=== PATIENT | female | born 1940 | race Caucasian/White ===

== ENCOUNTER 2024-01-23 09:57 | Inpatient (IN) | payer MEDICARE, SELFPAY ==
[2024-01-23] VITALS (22 sets, daily range): BP systolic 75–110; BP diastolic 57–85; BMI 24.1
--- NOTE | 2024-01-23 07:39 | ED.GENMED ---
History of Present Illness
General
Chief Complaint: Breathing Problem
Source: patient, ambulance crew and [facility] records
Exam Limitations: none
Time Seen by Provider: 01/23/24 06:51
Nursing documentation reviewed up to this point in time: agreed with
Travel History
Have you had any contact with someone who has COVID-19?: No
Do you have any symptoms of coronavirus? Fever > 100 degrees, chills, cough, shortness of breath, sore throat, loss of taste or smell, muscle aches, or headache?: Yes
Symptoms:: SOB
History of Present Illness
History of Present Illness:
83-year-old female with a past medical history of hypertension, COPD, chronic respiratory failure on 4 L of oxygen recently per [facility] report, PE BENJY Bundy who presents to the emergency department from [facility] where
she has been staying after recent hospitalization at [facility] post fall with right knee injury. She presents today for evaluation of shortness of breath. Patient reports that she was feeling increased shortness of breath throughout the
night. She says that this morning when the nurse came in to check on her they noticed that she was breathing quite heavily and called EMS to bring her to the hospital. Patient says that she did have some mild discomfort 'like I had to belch' that
lasted for short period of time last night�she is quite vague about the duration of the symptoms but is quite sure that it is resolved at present. She has had mild cough but she says this is chronic related to her COPD and not necessarily changed.
She denies any recent fevers or chills. Denies any recent swelling in the legs. She denies any GI symptoms. She denies any other complaints.
Review of Systems
Review of Systems
All Other Systems: ROS reviewed and negative except as documented in HPI and ROS
Constitutional: Denies fever or chills
EENT: Denies sore throat or runny nose
Respiratory: Reports cough and trouble breathing
Cardiac: Reports chest pain; Denies diaphoresis or palpitations
ABD/GI: Denies abdominal pain, nausea, vomiting or diarrhea
: Denies dysuria, frequency or flank pain
Musculoskeletal: Denies neck pain or back pain
Neurological: Denies headache, weakness or numbness
Phy Exam
Physical Exam
Physical Exam:
General: Awake, alert, oriented x3; no acute distress
Head: Normocephalic, atraumatic
Eyes: Conjunctiva normal, EOMI
Throat: Airway intact, handling secretions
Neck: Trachea midline, supple without meningismus, no JVD
Lungs: Patient is saturating 100% on 2 L nasal cannula (reportedly wears 4 L at [place] point); she has bilateral wheezing throughout all lung faustin
Heart: Tachycardia with regular rhythm, no murmurs, gallops, or rubs
Abd: Soft, non distended, nontender
Neuro: Cranial nerves grossly intact, speech fluid
Skin: no rash
Extremities: Trace edema in the lower extremities bilaterally, equal pulses in all extremities
Scores
Heart Failure Risk
Heart Failure Risk Score: Not Applicable
Heart Score for Chest Pain Patients
STEMI patient?: Not applicable
Withdrawal Assessment of Alcohol
Withdrawal Assessment Completed?: Not applicable
Course
Orders/Labs/Results
Orders:
Orders
01/23/24 06:55
Electrocardiogram (*1) Urgent
Reason for Study: Shortness of Breath
EKG- Treatment ONCE
01/23/24 07:24
Echo 2D MMode Color/Doppler Urgent
Reason for Study: chest pain, abnormal EKG
01/23/24 07:26
CR Chest Portable - 1 View Urgent
Comment:
Reason For Exam: sob, cp
Reason Study Needs to be Portable: Unable to Transport
01/23/24 07:29
COVID-19 Antigen Urgent
Source: Nasal Swab
Comprehensive Metabolic Panel Urgent
NT-proBNP Urgent
Troponin I Urgent
Influenza A+B Rapid Molecular Urgent
MARS Source: Nasal Swab
Specimen Description:
01/23/24 07:46
Ipratropium/Albuterol Sulfate [Duoneb] 3 ml INH R NOW STA
MethylPREDNISolone PF [Solu-Medrol Pf] 125 mg IV NOW STA
01/23/24 07:48
Complete Blood Count/With Diff Urgent
01/23/24 07:58
0.9% Sodium Chloride 500 ml [Nss] 500 ml IV BOLUS
01/23/24 08:08
Aspirin Chewable [Low Strength Aspirin] 324 mg PO NOW STA
01/23/24 08:14
Electrocardiogram (*1) Urgent
Reason for Study: Chest Pain
EKG- Treatment ONCE
Heparin 3,400 units IV NOW STA
Nursing to Place Non Medication Order As Directed
Physician Order: PTT 6 hours after initial start of Heparin infusion
Above order entered?: Yes
01/23/24 08:15
Heparin 52799 Units/250 ml 25,000 units in 250 ml IV PER PROTOCOL
Weight to be used for heparin protocol in kilograms (kg):: 56
Protocol:: Cardiac Tx/Acute Coronary
PTT Goal Range to be used:: PTT 73 to 111 seconds
Order type:: Initial
INITIAL Infusion Dose (UNITS/KG/hr) & then follow protocol:: 12 units/kg/hr
Infusion Dose in UNITS/hr & then follow protocol (UNITS/hr):: 650
INFUSION RATE in mL/hr & then follow protocol (mL/hr):: 6.5
PTT less than or equal to 64 seconds:: Increase rate by 200 units/hr (+ 2 mL/hr)
PTT 64.1 to 72.9 seconds:: Increase rate by 100 units/hr (+ 1 mL/hr)
PTT 73 to 111 seconds:: Target Range. No change in rate.
PTT 111.1 to 130.9 seconds:: Decrease rate by 100 units/hr (- 1 mL/hr)
PTT 131 to 199.9 seconds:: HOLD for 1 hr. Then decrease rate by 200 units/hr (- 2 mL/hr)
PTT greater than or equal to 200 seconds:: HOLD for 2 hrs & Notify Provider. Then decrease by 200 units/hr (-
2 mL/hr)
Lab follow-up:: Each change, PTT q6h until 2 consecutive are therapeutic. Then PTT
daily.
01/23/24 08:23
PTT Urgent
Comment: Obtain baseline before beginning heparin infusion if not already collected
01/23/24 08:32
CARDIOLOGY CONSULT Urgent
Consulting Provider: Krish Parker
Was physician already notified: Yes
01/23/24 14:45
PTT Urgent
Comment: heparin GTT
Abnormal Lab Results
01/23/24 01/23/24
07:29 07:48
RBC 3.55 L 10^6/uL
(4.20-5.40)
Hgb 9.6 L g/dL
(12.0-16.0)
Hct 29.0 L %
(37.0-47.0)
RDW 15.1 H %
(11.5-14.5)
Plt Count 482 H 10^3/uL
(130-400)
Abs Immat Gran (auto) 0.1 H 10^3/uL
(0-0.05)
Immature Gran % 1.3 H %
(0-0.5)
Lymphocytes % 16.7 L %
(20.5-51.1)
Sodium 128 L mmol/L
(135-145)
Potassium 5.2 H mmol/L
(3.5-5.1)
Chloride 95 L mmol/L
(98-107)
Glucose 104 H mg/dl
(70-99)
AST 41 H U/L
(14-36)
Troponin I 5.450 H* ng/ml
01/23/24 07:48
01/23/24 07:29
Vital Signs
Initial and Last Documented VS:
Initial Vital Signs
BP
86/64
01/23/24 07:03
Last Documented Vital Signs
Temp Pulse Resp BP Pulse Ox
36.7 C 105 20 86/64 99
01/23/24 07:05 01/23/24 07:05 01/23/24 07:05 01/23/24 07:05 01/23/24 07:05
MDM/Problems Addressed
Differential Diagnosis Includes:
COPD exacerbation, pneumonia, CHF, ACS/acute NM, PE less likely with patient on Eliquis
MDM/Problems Addressed:
83-year-old female presents for evaluation of shortness of breath also reports she had some brief vague chest discomfort last night. She arrives to us mildly hypertensive with a blood pressure of 86/64 with tachycardia pulse of 103, mild tachypnea
with respiratory rate of 21; she is saturating appropriately on 2 L nasal cannula which is actually less than her baseline per report. Physical exam as above she does notably have bilateral wheezing. Plan to place an IV check labs including a CBC
and CMP, troponin, BNP. Will check COVID swab. Call for stat chest x-ray. Check an EKG. Treat the DuoNeb and steroids given her wheezing. Provide some fluids. Monitor closely reassess after the above.
EKG reviewed by me shows some diffuse ST changes�discussed with interventional cardiology given slight ST elevation does not quite meet STEMI criteria and patient currently chest pain-free. Cardiology recommending no activation of Spare Hand Carding for now
we will perform a stat echo; will try to obtain an old EKG from [facility].
Spoke with nursing staff at [facility] been there since 12/31, started complaining last night of chest pain or shortness of breath today increasing breathing issues sent to the emergency room. She has been getting her Eliquis last dose was at
8 PM.
Initial labs show anemia to 9.6�unclear baseline. CMP shows mild hyponatremia, marginal hyperkalemia otherwise unremarkable.
Lab called back patient's initial troponin: Significantly elevated at 5.45. Patient says she is chest pain-free. Discussed with cardiology who recommended starting with heparin and aspirin. Echo pending. Continue to monitor closely. Given her
slight anemia with no baseline for comparison I did do a rectal exam prior to starting heparin to rule out GI bleeding that she was Hemoccult negative here. At this point will be to the hospital for continued management of her NSTEMI. Case
discussed with hospitalist for admission.
Chronic conditions affecting care:
COPD
Acute Exacerbation and/or Progression of Chronic Illness:
Acute COPD exacerbation managed with DuoNeb and steroids
*Radiology
Radiology exam reviewed: preliminary read by ED provider and radiology read reviewed
*Pulse Oximetry
Patient hypoxic: no
*EKG
Interpreted by ED Provider?: Yes
Comparison EKG: no comparison EKG present
Heart Rate: 106
Rate: tachycardiac
Rhythm: sinus and sinus tachycardia
Interval: normal interval
QRS Pattern: normal QRS
Ischemia: other (Diffuse ST elevations)
*Critical Care Note
Total Time (30-74mins, 75-104mins- exclusive of procedures): Not Applicable
Data Reviewed
Review of Other/Old Records Reveals: Labs and Records
Source: patient, records, ambulance crew and [facility] records
Patient Management
Discussion with other providers: Hospitalist (Discussed with hospitalist) and Parks Worker (Discussed with interventional cardiology, discussed with general cardiology)
Escalation/DeEscalation of care consider admission/obs:
Admission indicated
ED Attending Note
-
Portions of this chart may have been created with voice recognition software.� Occasional wrong word or��sound alike� substitutions may have occurred due to the inherent limitations of voice recognition software.
Discharge Plan
Departure
Patient Disposition: Admit
Date of Disposition: 01/23/24
Time of Disposition: 08:45
Admit to doctor: Elton
Presentation/result/management discussed w/ accepting MD/DO: Hospitalist
Discharge Problem:
Non-ST elevation NM (NSTEMI), COPD with acute exacerbation
Referrals:
Anthony Boss I., DO [Family Provider] -
Interventions
Interventions:
*Risk Screen - Suicide Last Done: 01/23/24 07:08
*General Assessment Last Done: 01/23/24 07:07
*Neglect/Abuse Screening Last Done: 01/23/24 07:08
*ED COVID-19 Vaccine History Last Done: 01/23/24 07:07
[2024-01-23 07:55] LABS: ALT (SGPT) 11 U/L (0-35); AST (SGOT) 41 U/L (14-36); Albumin 3.6 g/dl (3.5-5.0); Alkaline Phosphatase 108 U/L (38-126); Blood Urea Nitrogen 14 mg/dl (7-17); Calcium 9.3 mg/dl (8.4-10.2); Carbon Dioxide 26 mmol/L (22-30); Chloride 95 mmol/L (98-107); Estimated Creatinine Clearance 51 ml/min; Glucose 104 mg/dl (70-99); Potassium 5.2 mmol/L (3.5-5.1); Sodium 128 mmol/L (135-145); Total Bilirubin 0.4 mg/dl (0.2-1.3); Total Protein 6.8 g/dl (6.3-8.2); eGFR > 60.00
[2024-01-23 07:59] LABS: % Eosinophils 1.5 % (0-6); % Immature Granulocytes 1.3 % (0-0.5); % Lymphocytes 16.7 % (20.5-51.1); % Monocytes 6.6 % (1.7-9.3); % Neutrophils 72.9 % (42.2-75.2); Absolute Basophils 0.1 10^3/uL (0-0.2); Absolute Eosinophils 0.1 10^3/uL (0-0.7); Absolute Immature Granulocytes 0.1 10^3/uL (0-0.05); Absolute Lymphocytes 1.3 10^3/uL (1.2-3.4); Absolute Monocytes 0.5 10^3/uL (0.1-0.6); Absolute Neutrophils 5.8 10^3/uL (1.4-6.5); Hemoglobin 9.6 g/dL (12.0-16.0); Mean Corp Hgb Conc. 33.1 g/dL (33.0-37.0); Mean Corpuscular Volume 81.7 fL (81.0-99.0); Mean Platelet Volume 9.2 fL (7.4-10.4); Nucleated Red Blood Cells % 0 %; Platelet Count 482 10^3/uL (130-400); Red Blood Cell Count 3.55 10^6/uL (4.20-5.40); Red Cell Dist. Width 15.1 % (11.5-14.5)
[2024-01-23 08:04] LABS: COVID-19 Antigen Negative (Negative)
[2024-01-23 08:06] LABS: NT-proBNP 3900 pg/ml
[2024-01-23] MEDS: SOLU-MEDROL PF 125 MG IV (08:08)
[2024-01-23] MEDS: DUONEB 3 ML INH (08:10)
[2024-01-23] MEDS: NSS 500 IV ×2 (08:11→11:18)
[2024-01-23] MEDS: LOW STRENGTH ASPIRIN 324 MG PO (08:26)
[2024-01-23] MEDS: HEPARIN 3400 UNITS IV (08:31)
[2024-01-23] MEDS: HEPARIN 25000 UNITS/250 ML IV (08:34)
[2024-01-23 08:53] LABS: APTT 41.5 Sec (23.4-35.0)
--- NOTE | 2024-01-23 09:09 | HPS.HSE ---
Family Physician
-
Family Physician: Anthony Boss
Chief Complaint
-
SOB
History of Present Illness
83-year-old female with past medical history of hypertension, COPD, chronic respiratory failure on 4L of oxygen, PE on Eliquis, GERD; who presented from [facility] where she has been staying after recent hospitalization at [facility].
Patient states that she was at [facility] for shortness of breath, however according to ER note, she was there for fall with right knee injury.
She was sent to ER for shortness of breath, which started the night prior.
She admits to chronic dyspepsia which she attributes to GERD, and she denies to any acute new chest pain.
She is a poor historian.
She denies to fevers/chills, cough, abdominal pain etc.�
Medical History
Past Medical History
Past Medical History: Reports Other
Additional Past Medical History:
hypertension
COPD
chronic respiratory failure on 4L of oxygen
PE on Eliquis
GERD
Past Surgical History: Reports Other
Social History
Tobacco: Former Smoker (quit 1 year ago per pt )
Alcohol: Occasional
Living: With Family
Family History
Family History: Not pertinent
Allergies / Home Medications
Allergies reflects when Allergies were last updated in [employer].
Home Medications with original date entered in [employer]
Allergy/Medication List:
Allergies
Allergy/AdvReac Type Severity Reaction Status Date / Time
cephalexin Allergy Unknown Verified 01/23/24 07:06
Home Medications
acetaminophen 325 mg tablet (Tylenol) 650 mg PO Q6H PRN mild pain 01/23/24
albuterol sulfate 90 mcg/actuation aerosol inhaler 2 puff inhalation R Q6HPRN PRN sob/wheezing 01/23/24
apixaban 5 mg tablet (Eliquis) 5 mg PO BID 01/23/24
arformoterol 15 mcg/2 mL solution for nebulization 2 ml inhalation R Q12 01/23/24
bisacodyl 10 mg rectal suppository 10 mg NV DAILY PRN if no results for MOM 01/23/24
budesonide 0.5 mg/2 mL suspension for nebulization 0.5 mg inhalation R Q12 01/23/24
calcium carbonate 500 mg calcium (1,250 mg) chewable tablet 1,000 mg PO Q8HPRN PRN gerd 01/23/24
chlorhexidine gluconate 0.12 % mouthwash (Peridex) 15 ml PO BID 01/23/24
cholecalciferol (vitamin D3) 25 mcg (1,000 unit) tablet 25 mcg PO DAILY 01/23/24
cyanocobalamin (vitamin B-12) 1,000 mcg tablet 1,000 mcg PO DAILY 01/23/24
docusate sodium 100 mg capsule (Colace) 200 mg PO HS 01/23/24
escitalopram oxalate 10 mg tablet (Lexapro) 10 mg PO DAILY 01/23/24
ferrous sulfate 325 mg (65 mg iron) tablet 325 mg PO DAILY 01/23/24
fluticasone 250 mcg-salmeterol 50 mcg/dose blistr powdr for inhalation 1 inh inhalation R BID 01/23/24
levocetirizine 5 mg tablet 5 mg PO DAILY 01/23/24
lidocaine 4 % topical patch 1 patch topical BID apply to left knee 01/23/24
magnesium hydroxide 400 mg/5 mL oral suspension (Milk of Magnesia) 30 ml PO DAILY PRN constipation 01/23/24
magnesium hydroxide 400 mg/5 mL oral suspension (Milk of Magnesia) 30 ml PO HSPRN PRN if no BM in 3 days 01/23/24
melatonin 3 mg tablet 3 mg PO HS 01/23/24
mirtazapine 7.5 mg tablet 7.5 mg PO HS 01/23/24
nicotine 14 mg/24 hr daily transdermal patch 1 patch transdermal DAILY 01/23/24
pantoprazole 40 mg tablet,delayed release (Protonix) 40 mg PO DAILY 01/23/24
peg [id number] 1 %-0.2 %-0.2 % eye drops (Artificial Tears ([id number])) 1 drp BOTH EYES BID 01/23/24
polyethylene glycol 3350 17 gram oral powder packet 17 g PO DAILY PRN constipation 01/23/24
potassium chloride 20 mEq tablet,extended release 40 meq PO DAILY 01/23/24
pramipexole 0.25 mg tablet 0.25 mg PO DAILY PRN restless legs 01/23/24
pramipexole 0.5 mg tablet 1 mg PO HS 01/23/24
sennosides 8.6 mg tablet (senna) 8.6 mg PO HS 01/23/24
sodium phosphates 19 gram-7 gram/118 mL enema (Fleet Enema) 118 ml NV DAILYPRN PRN if no BM in 3 days 01/23/24
torsemide 10 mg tablet 10 mg PO DAILY 01/23/24
tramadol 50 mg tablet 50 mg PO Q8H PRN moderate pain 01/23/24
Review of Systems
-
Respiratory: Reports See HPI and Trouble Breathing; Denies Cough
Cardiac: Denies Chest Pain
Physical Exam
Vital Signs
Vital Signs
Temp Pulse Resp BP Pulse Ox
36.7 C 111 16 96/73 97
01/23/24 07:05 01/23/24 09:02 01/23/24 09:02 01/23/24 09:02 01/23/24 09:02
Physical Exam
General: Well Developed, Well Nourished, Comfortable, Conversant and Respiratory Distress (chronic)
HEENT: NormoCephalic, Moist mucous membranes, Atraumatic and Oxygen (4L NC)
Respiratory: Clear and Non Labored Respirations; No Accessory Resp Muscle Use
Cardiac: S1/S2 and Regular Rhythm; No Murmur or Rub
GI: Soft, Non Tender, Non Distended and Normal Bowel Sounds; No Organomegaly
Rectal: Deferred by Provider
Musculoskeletal: No Clubbing, No Cyanosis and No Edema
Skin: No Rash
Neuro: Awake and AO x 3
Psych: Calm and Intact Judgment/Insight (somewhat)
Laboratory Results
-
01/23/24 07:48
01/23/24 07:29
Laboratory Results
Total Bilirubin 0.4 mg/dl (0.2-1.3) 01/23/24 07:29
AST 41 U/L (14-36) H 01/23/24 07:29
ALT 11 U/L (0-35) 01/23/24 07:29
Alkaline Phosphatase 108 U/L (38-126) 01/23/24 07:29
Troponin I 5.450 ng/ml H* 01/23/24 07:29
Data Reviewed
-
Diagnostic Radiology: Image Personally Visualized and interpreted
Lab Data: Labs Reviewed by me
Impression/Plan
-
83-year-old female with past medical history of hypertension, COPD, chronic respiratory failure on 4L of oxygen, PE on Eliquis, GERD; who presented from [facility] where she has been staying after recent hospitalization at [facility].
Patient states that she was at [facility] for shortness of breath, however according to ER note, she was there for fall with right knee injury.
She was sent to ER for shortness of breath, which started the night prior.
She admits to chronic dyspepsia which she attributes to GERD, and she denies to any acute new chest pain.
She is a poor historian.
She denies to fevers/chills, cough, abdominal pain etc.�
A/P:
# Dyspnea
# ACS/ NSTEMI
Trop 5.45, cont to trend til peak
EKG prelim read: sinus tachycardia, possible septal and inferior infarct
Check echo
Started ASA
Started heparin drip
Card plan to take to cardiac cath
# hyponatremia
Sodium level 128
# mild hyperkalemia
potassium level 5.2
# hypertension
# COPD
# chronic hypoxic respiratory failure on 4L of oxygen recently per longterm report
s/p methylprednisone x1 in ED, observe off further steroid
# PE on Eliquis
cont heparin drip currently for presumed ACS
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
DVT ppx: WINCHMAN/CRANE OPERATOR on Eliquis. Heparin drip currently for presumed ACS
FC
--- NOTE | 2024-01-23 09:13 | CON.CAR ---
Addendum entered and electronically signed by Leana Valenzuela MD 01/23/24 13:25:
I saw and examined the patient.
The Certified Professional Coder's note was reviewed and I agree with the note.
Comment: Briefly, o is a 83-year-old female with past medical history of COPD, on chronic 4 L of oxygen at home at bedtime, hypertension, prior PE on chronic Eliquis, last dose yesterday evening around 8 PM, GERD who presents from [facility]
[place] [facility] with complaints of worsening shortness of breath and borderline blood pressures. She felt like she had increasing shortness of breath through the night and called the nurse this morning and was brought in through the emergency
department. Her initial ECG showed sinus tachycardia with diffuse ST elevations in lead V1 through V6, I and aVL and inferiorly, not meeting to ST elevation [place] criteria. She described a vague minimal chest discomfort overnight however denied any
chest discomfort in the emergency department. Even despite borderline low blood pressures, she denied any dizziness or lightheadedness. Her initial troponin returned elevated at 5.45 and she was started on treatment for potential NSTEMI.
Vital signs reviewed. Blood pressures in the 80s to 90 systolic however patient is asymptomatic currently. Sinus tachycardia noted.
Exam is notable for a elderly female, thin, frail, hard of hearing, no acute distress, nontoxic-appearing, tachycardic with normal S1 and S2, elevated JVP, decreased breath sounds at bases but otherwise clear, abdomen is soft, nontender,
nondistended with active bowel sounds, warm extremities.
Lab lab work reviewed with normal renal function, anemia noted with a hemoglobin of 9.6 and troponin initial is 5.45
Recommendations:
1. Long discussion was had with the patient and we reviewed the stat echocardiogram at bedside with some wall motion abnormalities and mid to apical anterior, anteroseptal, anterolateral and inferior chen concerning for possible Takotsubo
cardiomyopathy however this is a diagnosis of exclusion and test given her advanced age with multiple cardiovascular risk factors, we discussed the risk and benefits of a heart catheterization and in a shared decision-making fashion decided to move
forward with invasive coronary angiography to rule out obstructive CAD.
2. She received full dose aspirin as well as was started on IV heparin drip in the emergency department. We will add high intensity statin. Currently her blood pressures are too low to initiate beta-tee.
3. Further recommendations based on results from heart catheterization.
Discussed with ED nursing and attending in detail. I reached out to her daughter, Tori on her cell phone number as well as her home phone number multiple times and was sent to [employer].
Leana Valenzuela MD, [facility], [facility]
Original Note:
Consultation
Consultation Request
Date/Time Consultation Requested: 01/23/2024
Date/Time Consultation Performed: 01/23/2024 at 0830
Requesting Provider: Dr. Levy
Performing Provider: Dr. Valenzuela
Reason for Consultation: Elevated troponin, SOB, chest pain
Medical History
-
History of Present Illness:
HPI: Patient presented from [facility] for evaluation of shortness of breath, tachycardia, and hypotension. She had increasing shortness of breath throughout the night and called the nurse this morning. When she was evaluated, they
noted that her breathing was heavy and she was hypotensive and EMS was called. She denies any chest pain, however admits that she does have occasional episodes of what she feels is acid reflux, with a sensation of needing to belch and discomfort in
her epigastric region. She denies any dizziness or lightheadedness. On arrival to the emergency room, she was noted to have EKG changes with fairly diffuse ST elevations noted in leads I, II, and V3 through V6. Initial troponin returned elevated
at 5.45. Cardiology consulted. She was started on heparin drip and given 324 mg of aspirin in the emergency room. Urgent echocardiogram ordered and being completed during examination and history. Preliminarily, appears to show new wall motion
abnormalities which were not previously noted from echo at [facility] during fall 2022 admission. Patient continues to deny any active chest pain and reports her breathing feels stable.
PMH:
Chronic respiratory failure on 4 L of oxygen
COPD
Hypertension
h/o PE on chronic Eliquis
GERD
Past Medical History
Past Medical History: Other (In HPI)
Social History
Tobacco: Former Smoker
Alcohol: Occasional
Drug: None
Living: Assisted Living
Employment: Retired
Family History
Family History: Reviewed & Not Pertinent
Allergies / Home Medications
Allergy/AdvReac Type Severity Reaction Status Date / Time
cephalexin Allergy Unknown Verified 01/23/24 07:06
Review of Systems
-
History Source: Patient
All other systems: Negative unless noted
Physical Exam
Vital Signs
Temp Pulse Resp BP Pulse Ox
98.0 F 111 16 96/73 97
01/23/24 07:05 01/23/24 09:02 01/23/24 09:02 01/23/24 09:02 01/23/24 09:02
Lab Results
01/23/24 07:48
01/23/24 07:29
Troponin I 5.450 ng/ml H* 01/23/24 07:29
Epx-O-Auvkgklfilq Pept 3900 pg/ml 01/23/24 07:29
Physical Exam
General: Well Developed, Well Nourished and No Apparent Distress
HEENT: Normocephalic, Anicteric and Moist Mucous Membranes
Respiratory: Non Labored Respirations
Cardiac: Regular Rhythm
Musculoskeletal: No Clubbing, No Cyanosis and No Edema
Skin: Warm and Dry
Neuro: Nonfocal/Grossly Intact
Psych: Calm
Impression / Plan
-
Highway Construction Inspector: Unknown, initially seen by Dr. Valenzuela
Impression:
Presented with SOB
Elevated troponin, suspect NSTEMI
Anemia
Hyponatremia
Hyperkalemia
Tachycardia
Chronic respiratory failure on 4 L of oxygen
COPD
Hypertension
h/o PE on chronic Eliquis
GERD
Echo 10/13/2023 @ [facility]: EF 75%, no RWMA, mild AR, aortic sclerosis without stenosis, mild mitral stenosis, moderate TR, estimated PAP 58 mmHg
Echo 01/23/2024: Study completed, report pending
Plan:
-Presented for evaluation after having increased SOB overnight. Hypotensive and tachycardic on arrival.
-Elevated troponin noted, suspect NSTEMI. Initial troponin 5.45. Continue to trend to peak.
-EKG sinus tach with diffuse ST segment elevations noted.
-Echo completed at bedside in ER and new WMA noted.
-Dr. Valenzuela discussed with patient and she reports she makes decisions for herself and is agreeable to invasive procedures at this time.
-Plan is for patient to go up to prosthetics lab technician for LHC.
-Continue heparin gtt.
-Aspirin 324mg given in ER, continue aspirin 81 mg daily for now.
-On Eliquis 5mg BID for h/o PE. Last dose PM 3. (Of note, with age and weight, likely should be on lower dose 2.5mg BID going forward)
-On torsemide as OP, continue for now. ProBNP 3900.
-Anemia noted with hemoglobin 9.6, monitor for now.
-Further recommendations to be made pending results of cath
HPI: Patient presented from [facility] for evaluation of shortness of breath, tachycardia, and hypotension. She had increasing shortness of breath throughout the night and called the nurse this morning. When she was evaluated, they
noted that her breathing was heavy and she was hypotensive and EMS was called. She denies any chest pain, however admits that she does have occasional episodes of what she feels is acid reflux, with a sensation of needing to belch and discomfort in
her epigastric region. She denies any dizziness or lightheadedness. On arrival to the emergency room, she was noted to have EKG changes with fairly diffuse ST elevations noted in leads I, II, and V3 through V6. Initial troponin returned elevated
at 5.45. Cardiology consulted. She was started on heparin drip and given 324 mg of aspirin in the emergency room. Urgent echocardiogram ordered and being completed during examination and history. Preliminarily, appears to show new wall motion
abnormalities which were not previously noted from echo at [facility] during fall 2022 admission. Patient continues to deny any active chest pain and reports her breathing feels stable.
Data Reviewed
-
EKG: Tracing Personally Visualized and interpreted
Radiology: Report Reviewed by me
Labs: Labs Reviewed by me
Old Records: Reviewed
--- NOTE | 2024-01-23 13:09 | ITS.CL.CATH ---
Hvac Engineering Technician - Catheterization
Cardiac Catheterization
Procedure Report:
LEFT HEART CATHETERIZATION
Date of Procedure: January 23, 2024
Referring: [place] emergency department
PROCEDURES:
1. Left heart catheterization, coronary angiogram.
2. Ultrasound-guided access
INDICATION: Jadyn is a 83-year-old female with past medical history of COPD, on chronic 4 L of oxygen at home at bedtime, hypertension, prior PE on chronic Eliquis, last dose yesterday evening around 8 PM, GERD who presents from [facility]
home with complaints of worsening shortness of breath and borderline blood pressures. She felt like she had increasing shortness of breath through the night and called the nurse this morning and was brought in through the emergency department. Her
initial ECG showed sinus tachycardia with diffuse ST elevations in lead V1 through V6, I and aVL and inferiorly, not meeting to ST elevation [place] criteria. She described a vague minimal chest discomfort overnight however denied any chest discomfort
in the emergency department. Even despite borderline low blood pressures, she denied any dizziness or lightheadedness. Her initial troponin returned elevated at 5.45 and she was started on treatment for potential NSTEMI and referred for a
coronary angiogram to rule out obstructive CAD.
ACCESS: Left radial artery, 6 [place] sheath, under ultrasound guidance
HEMODYNAMICS : (mmHg)
AO (s/d) : 106/68
LV (s/d) : 103/22
LVEDP : 34
CORONARY FINDINGS
DOMINANCE: Right
LEFT MAIN: The left main artery is a large-caliber vessel which gives rise to a left anterior descending artery, a ramus intermedius artery and the left circumflex artery. There is minimal luminal irr egularities.
LEFT ANTERIOR DESCENDING: The left anterior descending artery is a large-caliber vessel which gives rise to multiple small caliber diagonal branches as it courses through the anterior interventricular groove and wraps around the apex. There are
minimal luminal irregularities.
RAMUS INTERMEDIUS: The ramus intermedius artery is a medium to large caliber vessel with minimal luminal irregularities.
CIRCUMFLEX: The left circumflex artery is a medium caliber vessel which gives rise to 1 small to medium caliber obtuse marginal branch. There is minimal luminal irregularities.
RIGHT CORONARY ARTERY: The right coronary artery is a large-caliber, dominant vessel which gives rise to the right posterior descending artery and the right posterolateral system. Angiographically normal vessel.
SEDATION: 21 minutes of procedural sedation was utilized. An independent medical assistant was present to assist with and help manage the patient's level of consciousness and physiologic status.
RADIATION SUMMARY: Fluoro Time (min): 2.1, Dose (mGy): 225.5, DAP (Gy.cm2) : 16.8
Closure Device: Vascular band over left radial artery, 12 cc of air.
CONCLUSIONS
1. No obstructive coronary artery disease.
2. Significant elevated LVEDP.
RECOMMENDATIONS
1. Goal-directed medical therapy for Takotsubo cardiomyopathy. Will attempt IV diuresis and add beta-tee when blood pressures are stable.
2. Wean radial band per protocol.
3. We will resume Eliquis 2.5 mg twice daily based on her age and weight starting tonight which she is on chronically given her history of prior PE.
4. Eventual referral for outpatient cardiology follow up (3 mos follow up echo on GDMT) and cardiac rehab.
Leana Valenzuela MD, FACC, [facility] [place]
--- NOTE | 2024-01-23 14:08 | PTCARENOTE ---
1320: admit pt from slab inspector into cath recovery #10. Placed pt on all appropriate monitoring equipment. Pt pleasant, talkative, follows all commands. Teaching regarding L radial band. Pt's L hand cool, bluish hue and SPO2 reading 88% L hand. Cath
lab staff removes 2ml's air from radial band. SPO2 increases to 99-1005 and hand pink, cool.
1330: pts daughter calls and is updated. Will advise her when we move pt to her room.
1345: small amount bleeding noted at L radial band. Additional 1ml air instilled. No continued bleeding. SPO2 remains 99-100% L hand, skin pink.
--- NOTE | 2024-01-23 15:31 | PTCARENOTE ---
1450: Called all provided numbers for pts daughter Tori and unable to reach her.
--- NOTE | 2024-01-23 15:43 | PTCARENOTE ---
Received the patient form the [facility] producing [facility] in a stretcher. The patient is oriented to name and day but forgetful of place. Her Vital signs are stable. She is 98% on 2L of oxygen. Sinus tack is noted on the the monitor with a HR 108. Her left wrist
R-band is in place. A positive left radial pulse is noted. She complains of right foot pain, an 8/10 on scale and describes it as a 'pulsing and sharp'. Positive pedal pulses are noted BL. She could not tell me why she was in rehab nor what brought
her to [facility] prior to that. Her thoughts are flighty and she doesn't stay on track with the conversation or questions that I ask her. I instructed her on her activity restrictions, Her call chowdhury is within reach.
[2024-01-23] MEDS: NSS 1000 IV (16:15)
[2024-01-23] MEDS: LASIX 20 MG IV (16:16)
[2024-01-23] MEDS: LIDOCAINE 4% PATCH 1 PATCH TOPICAL (16:16)
--- NOTE | 2024-01-23 16:49 | CM ---
Reviewed chart. Met with Mrs. Varela to review discharge plans. She states prior to admission she was at [facility] for short term SNF/Rehab. She states she was only there for a few days. She states she resides with her daughter in a one
story home. She states she steps to get to the basement but she does not have to go down to the basement. She states she has home 02 which she uses at night only. She states she has a prescription plan. Will need to have physical and
occupational therapy evaluations to see if she has any skilled care needs. Will need a auth for SNF if she requires SNF. She states she would prefer to go home instead of going back to SNF/Rehab. Medical work-up in progress. The discharge plan is
to go to SNF/Rehab. versus home with daughter and VNA services. Will re-eval. on Friday.
[2024-01-23] MEDS: ULTRAM 50 MG PO (18:11)
--- NOTE | 2024-01-23 18:12 | PTCARENOTE ---
Patient's right foot pain is a 9/10 on scale. I medicated her with tramadol as ordered.
[2024-01-23] MEDS: TYLENOL 650 MG PO (19:27)
[2024-01-23] MEDS: ELIQUIS 2.5 MG PO (19:27)
[2024-01-23] MEDS: REFRESH EYE DROPS (PF) 1 DROPS BOTH EYES (19:27)
[2024-01-23] MEDS: VENTOLIN NEBULES 2.5 MG INH (20:23)
[2024-01-23] MEDS: ADVAIR HFA 115/21 MCG INHALER 2 PUFF INH (20:23)
[2024-01-23] MEDS: MELATONIN 3 MG PO (21:25)
[2024-01-23] MEDS: REMERON 7.5 MG PO (21:25)
[2024-01-23] MEDS: MIRAPEX, GENERIC 1 MG PO (21:25)
[2024-01-24] VITALS (11 sets, daily range): BP systolic 87–131; BP diastolic 60–66; PULSE 103–125; O2SAT 97; BMI 21.8
[2024-01-24 04:35] LABS: Hematocrit 28.6 % (37.0-47.0); Hemoglobin 9.2 g/dL (12.0-16.0); Mean Corp Hgb Conc. 32.2 g/dL (33.0-37.0); Mean Corpuscular Hgb 26.8 pg (27.0-31.0); Mean Corpuscular Volume 83.4 fL (81.0-99.0); Mean Platelet Volume 9.1 fL (7.4-10.4); Platelet Count 535 10^3/uL (130-400); Red Blood Cell Count 3.43 10^6/uL (4.20-5.40); Red Cell Dist. Width 15.3 % (11.5-14.5); White Blood Cell Count 8.1 10^3/uL (4.8-10.8)
--- NOTE | 2024-01-24 04:45 | PTCARENOTE ---
Assumed care of patient at change of shift. Patient oriented x3 and occasional forgetful. Patient fidgety in the bed and appears anxious. Tele shows Sinus Tach-SR. HR in the 80-100's. Patient sating 95-97% on 2L of O2. Patient tachypneic and makes
grunting noises at times. Left radial dressing C/D/I and has some ecchymosis. Patient educated multiple times on activity restrictions, and verbalized understanding. This RN removed purewick this AM, and encouraged pt to get OOB and use BSC.
Patient required one assist w/ standing at bedside. Gait weak, denies any dizziness. Patient aware of POC, call chowdhury within reach. Bed alarm active.
[2024-01-24 05:01] LABS: Blood Urea Nitrogen 16 mg/dl (7-17); Calcium 9.2 mg/dl (8.4-10.2); Carbon Dioxide 28 mmol/L (22-30); Chloride 94 mmol/L (98-107); Estimated Creatinine Clearance 51 ml/min; Glucose 103 mg/dl (70-99); HDL Cholesterol 53 mg/dl; LDL Cholesterol, Calculated 78 mg/dl; Magnesium 1.8 mg/dl (1.6-2.3); Potassium 4.4 mmol/L (3.5-5.1); Sodium 131 mmol/L (135-145); Total Cholesterol 149 mg/dl (50-199); Triglyceride 92 mg/dl (10-149); Very Low Density Lipoprotein 18 mg/dl (0-30); eGFR > 60.00
[2024-01-24] MEDS: ULTRAM 50 MG PO ×2 (05:39→15:54)
[2024-01-24] MEDS: REFRESH EYE DROPS (PF) 1 DROPS BOTH EYES ×2 (08:01→19:43)
[2024-01-24] MEDS: ELIQUIS 2.5 MG PO ×2 (08:02→19:45)
[2024-01-24] MEDS: TOPROL XL 12.5 MG PO (08:02)
[2024-01-24] MEDS: LIDOCAINE 4% PATCH 1 PATCH TOPICAL (08:02)
[2024-01-24] MEDS: NICODERM TRANSDERMAL 14 MG TRANSDERM (08:03)
[2024-01-24] MEDS: FLUSH (NSS) 1 FLUSH IV (08:04)
[2024-01-24] MEDS: ZYRTEC 5 MG PO (08:07)
[2024-01-24] MEDS: FEOSOL 325 MG PO (08:07)
[2024-01-24] MEDS: PROTONIX 40 MG PO (08:07)
[2024-01-24] MEDS: TYLENOL 650 MG PO (08:07)
--- NOTE | 2024-01-24 08:08 | W.PN.CARDCBS ---
Addendum entered and electronically signed by Krish Parker MD 01/24/24 11:57:
I saw and examined the patient.
The BANK REPRESENTATIVE or PA's note was reviewed and I agree with the note.
Comment: General: Appearing anxious at present
Neck: Supple, no JVD, HJR, carotids +2 B/L, no bruits bilaterally.
Heart: Non displaced PMI, RRR, no murmurs, No S3, S4, no rubs.
Lungs: Scattered rhonchi
Abdomen: Normal bowel sounds, soft, non-tender, non-distended.
Extremities: No clubbing, cyanosis or edema bilaterally.
Neuro: Grossly nonfocal, awake, alert and oriented x3.
Continue to treat for CHF with IV Lasix. [place] to have possible Takotsubo's. Check on cost of Jardiance/Farxiga. Hopefully add MIGUELANGEL inhibitor if blood pressure tolerates. Discussed with nursing.
Original Note:
Today's Communication / Plan
-
IV lasix
wean supp O2
low dose toprol
CM to assess cost of SGLT2 inhibitor
eliquis 2.5mg BID
PT/OT
Impression / Plan
-
Track Patrol: Unknown, initially seen by Dr. Valenzuela
Impression:
Presented with SOB
Elevated troponin, takotsubo CM by cath
Cardiomyopathy, EF 30-35%
Anemia
Hyponatremia
Hyperkalemia
Tachycardia
Chronic respiratory failure on 4 L of oxygen nocturnally prior to admission
COPD
Hypertension
h/o PE on chronic Eliquis
GERD
OA
Echo 10/13/[address] @ [facility]: EF 75%, no RWMA, mild AR, aortic sclerosis without stenosis, mild mitral stenosis, moderate TR, estimated PAP 58 mmHg
Echo 01/23/2024: EF 30 to 35%, stage II diastolic dysfunction, mild MR, moderate to severe AR, severe TR, PAP 40 to 45 mmHg
Plan:
-Presented for evaluation due to shortness of breath. Hypotensive and tachycardic on arrival.
-Initial troponin elevated at 5.45 and has trended down since admission
-EKG with diffuse ST elevations. Patient taken urgently to Workforce Manager which showed nonobstructive disease and evidence of Takotsubo cardiomyopathy
-Echocardiogram with new cardiomyopathy, EF 30 to 35% as well as moderate to severe AR and severe TR. Last echo from 09/2023 at [facility] as above. Continue low-dose Toprol. Hypotension presently limits significant uptitration of cardiomyopathy
regimen. Will have case management assess cost of SGLT2 inhibitor
-CHF education
-She has not had chest discomfort overnight. She states that prior to admission she was not using supplemental oxygen during the day, however was using 4 L nasal cannula at night. Wedge was elevated at 34 during cath
-proBNP 3900. Continue diuresis with IV Lasix 20 mg daily, may try to increase dose to BID if BP allows. Prior to admission she was taking torsemide 10mg daily. Hypotension limits more aggressive diuresis at this time. Wean supplemental oxygen as
able. Creatinine 0.5
-will need repeat echo post diuresis to reassess AR/TR
-Eliquis resumed post cath. She had been on 5 mg twice daily prior to admission, however with age and weight dose was decreased to 2.5 mg twice daily
-Anemia noted with hemoglobin 9.2. check iron studies
-main complaint this AM is knee pain from OA. PT/OT evals.
HPI: Patient presented from [facility] for evaluation of shortness of breath, tachycardia, and hypotension. She had increasing shortness of breath throughout the night and called the nurse this morning. When she was evaluated, they
noted that her breathing was heavy and she was hypotensive and EMS was called. She denies any chest pain, however admits that she does have occasional episodes of what she feels is acid reflux, with a sensation of needing to belch and discomfort in
her epigastric region. She denies any dizziness or lightheadedness. On arrival to the emergency room, she was noted to have EKG changes with fairly diffuse ST elevations noted in leads I, II, and V3 through V6. Initial troponin returned elevated
at 5.45. Cardiology consulted. She was started on heparin drip and given 324 mg of aspirin in the emergency room. Urgent echocardiogram ordered and being completed during examination and history. Preliminarily, appears to show new wall motion
abnormalities which were not previously noted from echo at [facility] during fall 2022 admission. Patient continues to deny any active chest pain and reports her breathing feels stable.
Progress Note - Track Patrol
Subjective
Date of Service: January 24, 2024
reports 10 knee pain. no CP, SOB
Objective
Labs:
01/24/24 04:03
01/24/24 04:03
Labs
Hgb 9.2 g/dL (12.0-16.0) L 01/24/24 04:03
Hct 28.6 % (37.0-47.0) L 01/24/24 04:03
Plt Count 535 10^3/uL (130-400) H 01/24/24 04:03
APTT Cancelled 01/23/24 14:45
Sodium 131 mmol/L (135-145) L 01/24/24 04:03
Potassium 4.4 mmol/L (3.5-5.1) 01/24/24 04:03
BUN 16 mg/dl (7-17) 01/24/24 04:03
Creatinine 0.5 mg/dL (0.6-1.0) L 01/24/24 04:03
Glucose 103 mg/dl (70-99) H 01/24/24 04:03
Troponins
01/23/24 01/23/24 01/23/24
07:29 12:45 21:13
Troponin I 5.450 H* 4.120 H* 4.030 H*
01/24/24
04:03
Troponin I 3.510 H*
Vital Signs and I&O:
Vital Signs
Temp Pulse Resp BP Pulse Ox
98.2 F 99 22 98/66 98
01/24/24 07:47 01/24/24 07:48 01/24/24 07:47 01/24/24 07:48 01/24/24 07:47
Vital Signs
Temp Pulse Resp BP Pulse Ox
98.2 F 99 22 98/66 98
01/24/24 07:47 01/24/24 07:48 01/24/24 07:47 01/24/24 07:48 01/24/24 07:47
Intake & Output
01/22/24 01/23/24 01/24/24 01/25/24
07:59 07:59 07:59 08:59
Intake Total 480 / 480
Output Total 850 / 850
Balance -370 / -370
Physical Exam
Physical Exam
GEN: No distress, awake, alert, oriented x3. on supp O2
HEENT: supple, anicteric, mmm, eomi
LUNGS: Decreased BS B/L bases, no wheezes
CV: Reg, S1/S2, 1/6 syst LSB
ABD: soft, BS+, NT/ND
EXT: No cyanosis, clubbing, edema
NEURO: Gross non-focal
SKIN: Warm, pink, dry. No rash. L radial site with dressing c/d/i, soft with mild surrounding ecchymoses
[2024-01-24] MEDS: LEXAPRO 10 MG PO (08:09)
[2024-01-24] MEDS: VENTOLIN NEBULES 2.5 MG INH ×4 (08:37→20:20)
[2024-01-24] MEDS: ADVAIR HFA 115/21 MCG INHALER 2 PUFF INH ×2 (08:37→20:19)
--- NOTE | 2024-01-24 09:24 | PTCARENOTE ---
While assisting the patient to the side of the bed the patient appeared to have a panic attack. She kept yelling out 'I can't breathe, I can't breathe!' 'I need to lay down!' During this time she was flailing about in her seated position and bobbing
her head in all directions. I tried to get her to focus on me and guide her in deep breathing exercises however, it took a few minutes for her to do so. Her pulse OX on 2L was 97-100% during this time. She remained seated on the side of the bed and
I eventually assisted her to the chair.
--- NOTE | 2024-01-24 10:26 | W.PN.HOSP.TC ---
Addendum entered and electronically signed by Hanna Oseguera MD 01/24/24 11:09:
RN informed that pt had a panic attack this morning. Her VS were at that time.
Cont SELF CONTAINED BEHAVIOR UNIT TEACHER Lexapro, start hydroxyzine PRN.
Check EKG fo QTc in the morning.
Cont to monitor mood
Low dose Ativan x1 added for prior to MRI
Original Note:
Today's Communication/Plan
-
see A/P
Assessment / Plan
Assessment / Plan
83-year-old female with past medical history of hypertension, COPD, chronic respiratory failure on 4L of oxygen, PE on Eliquis, GERD; who presented from [facility] where she has been staying after recent hospitalization at [facility].�
Patient states that she was at [facility] for shortness of breath, however according to ER note, she was there for fall with right knee injury.
She was sent to ER for shortness of breath, which started the night prior.
She admits to chronic dyspepsia which she attributes to GERD, and she denies to any acute new chest pain.
She is a poor historian.
She denies to fevers/chills, cough, abdominal pain etc.�
A/P:
# Dyspnea, resolved
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
Trop peaked at 5.45
s/p cath from admission 01/22: No obstructive coronary artery disease. Significant elevated LVEDP.
Echo noted: EF 30-35 %. Stage II diastolic dysfunction.�Moderate to severe aortic regurgitation.
Started IV Lasix 20 mg daily
Started low dose Toprol 12.5 mg daily
CM to assess cost of SGLT2 inhibitor
PT/OT eval
Eventual referral for outpatient cardiology follow up (3 mos follow up echo) and cardiac rehab.
�
# Pt c/o acute onset of R foot drop (difficulty with dorsiflexion of R foot)
?peripheral neuropathy involving the peroneal nerve, vs L4-L5 radiculopathy
Check MRI lumbar/sacral spine
PT OT eval
# hyponatremia improved
sodium level 131 from 128 on admission
# mild hyperkalemia, resolved
# hypertension
# COPD
# chronic hypoxic respiratory failure on 4L of oxygen recently per custodial report
s/p methylprednisone x1 in ED, observe off further steroid
# PE on Eliquis
Cont SELF CONTAINED BEHAVIOR UNIT TEACHER Eliquis 2.5 mg twice daily based on her age and weight.
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
DVT ppx: resumed SELF CONTAINED BEHAVIOR UNIT TEACHER Eliquis.
FC
DW RN
updated daughter on the phone. Daughter did confirm that pt is under a lot of stress recently with regard to her swelling.
total time spent 51 min
Anticipated Discharge: 24 - 48 hours
Subjective/Interval History
-
Date of Service: January 24, 2024
Objective Data
-
Labs:
Laboratory Results
01/24/24
04:03
WBC 8.1
Hgb 9.2 L
Hct 28.6 L
Plt Count 535 H
Sodium 131 L
Potassium 4.4
Chloride 94 L
Carbon Dioxide 28
BUN 16
Creatinine 0.5 L
Glucose 103 H
Calcium 9.2
Vital Signs:
Vital Signs
Temp Pulse Resp BP Pulse Ox
36.8 C 108 20 98/66 100
01/24/24 07:47 01/24/24 08:40 01/24/24 08:40 01/24/24 08:02 01/24/24 08:40
I&O
01/23/24 01/24/24 01/25/24
06:59 06:59 07:59
Intake Total 480 / 480
Output Total 850 / 850
Balance -370 / -370
Review of Systems
-
All other systems: Reviewed and negative
Physical Exam
-
General: Well Developed, Comfortable, Respiratory Distress (chronic), Conversant, Appears Chronically Ill and Cachectic
HEENT: Normocephalic, Atraumatic, Nose Appears Normal, Ears Appear Normal and Oxygen (2L NC)
Respiratory: Clear to Auscultation and Non Labored Respirations; Negative Accessory Resp Muscle Use
Cardiac: Regular Rhythm and S1/S2
GI: Soft, Nontender, Nondistended and Normal Bowel Sounds
Skin: Warm and Dry
Neuro: Awake and Alert
Psych: Calm and Intact Judgement/Insight
Data Reviewed
-
Labs: Labs Reviewed by me
[2024-01-24] MEDS: FLUSH (NSS) 2 FLUSH IV ×2 (10:33→12:11)
[2024-01-24] MEDS: LASIX 20 MG IV (10:33)
[2024-01-24] MEDS: ATIVAN 1 MG IV (12:12)
[2024-01-24] MEDS: NSS (PRESERVATIVE FREE) 0.5 ML IV (12:12)
[2024-01-24 13:29] LABS: Iron 65 ug/dl (37-170)
[2024-01-24 13:38] LABS: Percent Saturation 28 % (20-50); Total Iron Binding Capacity 231 ug/dl (265-497)
--- NOTE | 2024-01-24 17:06 | PTCARENOTE ---
The patient has been stable since her panic attack this morning. Her vitals remain stable. Sinus tack has been noted on the monitor with HRs in the low 100s. Pulse OX on 2L remain fluctuated between 97-100%. She has been oob x1 assist with a RW to
the chair. She has been incontinent of urine all shift. She has been medicated for her left knee pain with tramadol and Tylenol as ordered. There have been no complaints of right foot pain for me this shift.
[2024-01-24] MEDS: ELIQUIS PO (19:43)
[2024-01-24] MEDS: REMERON 7.5 MG PO (22:25)
[2024-01-24] MEDS: MELATONIN 3 MG PO (22:25)
[2024-01-24] MEDS: MIRAPEX, GENERIC 1 MG PO (22:25)
[2024-01-25] VITALS (8 sets, daily range): BP systolic 91–174; BP diastolic 55–162; BMI 21.5
--- NOTE | 2024-01-25 00:41 | PTCARENOTE ---
Pt. very pleasant so far this shift, slightly anxious but no panic attacks. VSS; NSR- ST (low 100's) on the monitor. Pulse ox 98% on 2L, no complaints of SOB/dyspnea. Complained of left knee pain level 7 out of 10, medicated with tramadol. Pt.
dozing off and on since.
[2024-01-25 06:13] LABS: Hematocrit 25.5 % (37.0-47.0); Hemoglobin 8.5 g/dL (12.0-16.0); Mean Corp Hgb Conc. 33.3 g/dL (33.0-37.0); Mean Corpuscular Hgb 27.1 pg (27.0-31.0); Mean Corpuscular Volume 81.2 fL (81.0-99.0); Platelet Count 474 10^3/uL (130-400); Red Blood Cell Count 3.14 10^6/uL (4.20-5.40); Red Cell Dist. Width 15.8 % (11.5-14.5); White Blood Cell Count 9.2 10^3/uL (4.8-10.8)
[2024-01-25 06:42] LABS: Blood Urea Nitrogen 16 mg/dl (7-17); Calcium 8.9 mg/dl (8.4-10.2); Carbon Dioxide 29 mmol/L (22-30); Chloride 96 mmol/L (98-107); Estimated Creatinine Clearance 51 ml/min; Glucose 95 mg/dl (70-99); Potassium 3.9 mmol/L (3.5-5.1); Sodium 132 mmol/L (135-145); eGFR > 60.00
[2024-01-25] MEDS: ADVAIR HFA 115/21 MCG INHALER 2 PUFF INH ×2 (07:14→19:38)
[2024-01-25] MEDS: VENTOLIN NEBULES 2.5 MG INH ×4 (07:14→19:39)
[2024-01-25] MEDS: LEXAPRO 10 MG PO (07:47)
[2024-01-25] MEDS: LIDOCAINE 4% PATCH 1 PATCH TOPICAL (07:47)
[2024-01-25] MEDS: NICODERM TRANSDERMAL 14 MG TRANSDERM (07:47)
[2024-01-25] MEDS: LASIX 20 MG IV (07:47)
[2024-01-25] MEDS: TOPROL XL 12.5 MG PO (07:47)
[2024-01-25] MEDS: FEOSOL 325 MG PO (07:47)
[2024-01-25] MEDS: ZYRTEC 5 MG PO (07:48)
[2024-01-25] MEDS: REFRESH EYE DROPS (PF) 1 DROPS BOTH EYES ×2 (07:48→20:08)
[2024-01-25] MEDS: PROTONIX 40 MG PO (07:48)
[2024-01-25] MEDS: ELIQUIS 2.5 MG PO ×2 (07:48→20:08)
[2024-01-25] MEDS: FLUSH (NSS) 2 FLUSH IV (07:49)
--- NOTE | 2024-01-25 10:08 | W.PN.HOSP.TC ---
Today's Communication/Plan
-
see A/P
Assessment / Plan
Assessment / Plan
83-year-old female with past medical history of hypertension, COPD, chronic respiratory failure on 4L of oxygen, PE on Eliquis, GERD; who presented from [facility] where she has been staying after recent hospitalization at [facility].�
Patient states that she was at [facility] for shortness of breath, however according to ER note, she was there for fall with right knee injury.
She was sent to ER for shortness of breath, which started the night prior.
She admits to chronic dyspepsia which she attributes to GERD, and she denies to any acute new chest pain.
She is a poor historian.
She denies to fevers/chills, cough, abdominal pain etc.�
A/P:
# Dyspnea due to anxiety attack
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
Trop peaked at 5.45
s/p cath from admission 01/22: No obstructive coronary artery disease. Significant elevated LVEDP.
Echo noted: EF 30-35 %. Stage II diastolic dysfunction.�Moderate to severe aortic regurgitation.
Started IV Lasix 20 mg daily
Started low dose Toprol 12.5 mg daily
CM to assess cost of SGLT2 inhibitor
PT/OT eval recc SNF
Eventual referral for outpatient cardiology follow up (3 mos follow up echo) and cardiac rehab.
Cont AUTOMATION CLERK Lexapro, mirtazapine for anxiety
Psych eval given this is severe anxiety causing Takotsubo
# Pt c/o acute onset of R foot drop (difficulty with dorsiflexion of R foot), ?peripheral neuropathy involving the peroneal nerve, vs L4-L5 radiculopathy
MRI lumbar/sacral spine noted Moderate compression of the exiting right L4 nerve root.
PT OT eval recc SNF
# hyponatremia improved
sodium level 132 from 128 on admission
# mild hyperkalemia, resolved
# hypertension
# COPD
# chronic hypoxic respiratory failure on 4L of oxygen recently per group home report
s/p methylprednisone x1 in ED, observe off further steroid
# PE on Eliquis
Cont AUTOMATION CLERK Eliquis 2.5 mg twice daily based on her age and weight.
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
DVT ppx: resumed AUTOMATION CLERK Eliquis.
FC
DW RN
updated daughter on the phone.
total time spent 51 min
Anticipated Discharge: Within 24 hours
Subjective/Interval History
-
Date of Service: January 25, 2024
Objective Data
-
Labs:
Laboratory Results
01/25/24
06:00
WBC 9.2
Hgb 8.5 L
Hct 25.5 L
Plt Count 474 H
Sodium 132 L
Potassium 3.9
Chloride 96 L
Carbon Dioxide 29
BUN 16
Creatinine 0.5 L
Glucose 95
Calcium 8.9
Vital Signs:
Vital Signs
Temp Pulse Resp BP Pulse Ox
36.4 C 107 20 96/65 96
01/25/24 07:41 01/25/24 07:43 01/25/24 07:41 01/25/24 07:43 01/25/24 08:50
I&O
01/24/24 01/25/24 01/26/24
05:59 06:59 06:59
Intake Total
Output Total
Balance
Review of Systems
-
All other systems: Reviewed and negative
Physical Exam
-
General: Well Developed, Comfortable, Respiratory Distress (chronic), Conversant, Appears Chronically Ill and Cachectic
HEENT: Normocephalic, Atraumatic, Nose Appears Normal, Ears Appear Normal and Oxygen (2L NC)
Respiratory: Clear to Auscultation and Non Labored Respirations; Negative Accessory Resp Muscle Use
Cardiac: Regular Rhythm and S1/S2
GI: Soft, Nontender, Nondistended and Normal Bowel Sounds
Skin: Warm and Dry
Neuro: Awake and Alert
Psych: Calm and Intact Judgement/Insight
Data Reviewed
-
Labs: Labs Reviewed by me
--- NOTE | 2024-01-25 11:34 | CS.PSYCHR ---
Consult Summary - Psychiatry
-
Psychiatry consult for anxiety. 83 yo female with long history of anxiety admitted on 01/22 for Takosubo cardiomyopathy due to a severe panic attack. Patient confirms this and states she has struggled from anxiety for years and has been under
significant stress lately over housing etc. She is not sure who has been prescribing her Lexapro 10mg daily and Remeron 7.5mg HS though states she does not have a psychiatrist. We discussed importance of avoiding benzos particularly given her health
conditions, age and the numerous medications she is already on. We discussed option to see an outpatient geriatric psychiatrist/therapy after discharge and she says she is open to that option.
MSE- good eye contact. fluent speech. circumstantial TP. anxious mood and affect. denies SI/HI/AVH. no delusions. fair insight/judgement
PMH- COPD, chronic resp failure on 4L oxygen, HTN, PE on Eliquus, GERD, Takotsubo cardiomyopathy
Family history- sister anxiety
Past psych history- denies every seeing a psychiatrist. unsure who prescribes lexapro and remeron
D&A- denies
Social- . has some family around. lives with daughter. Was at [facility] prior to this admission. Says she does not want to return there and it has been a source of stress
A/P- 83 yo female with long history of generalized anxiety disorder currently on lexapro and remeron. Leave at current doses for now. Lexapro can cause hyponatremia particularly in the elderly so that will have to be monitored. patient would
benefit from outpatient geriatric psychiatry/therapy. recommend seeing if that can be arranged by CM. Also I believe she will do better overall if able to avoid return to [facility] but I understand if that is not an option. Psychiatry will sign
off. Please contact team with further questions or concerns.
[2024-01-25] MEDS: ULTRAM 50 MG PO ×3 (12:16→23:38)
--- NOTE | 2024-01-25 13:00 | W.PN.CARDCBS ---
Today's Communication / Plan
-
Continue IV Lasix
Follow anemia
Add low-dose MIGUELANGEL inhibitor if blood pressure tolerates
Impression / Plan
-
Brim Raiser: Unknown, initially seen by Dr. Valenzuela
Impression:
Presented with SOB
Elevated troponin with peak troponin of 5.5, takotsubo CM by cath
Acute systolic CHF
Cardiomyopathy, EF 30-35%
Anemia
Hyponatremia
Tachycardia
Chronic respiratory failure on 4 L of oxygen nocturnally prior to admission
COPD
Hypertension
h/o PE on chronic Eliquis
GERD
OA
Echo 10/13/2023 @ [facility]: EF 75%, no RWMA, mild AR, aortic sclerosis without stenosis, mild mitral stenosis, moderate TR, estimated PAP 58 mmHg
Echo 01/23/2024: EF 30 to 35%, stage II diastolic dysfunction, mild MR, moderate to severe AR, severe TR, PAP 40 to 45 mmHg
Plan:
She seems to be improved.
Of note she has 4 L of oxygen at home which she uses at night and is on 2 L of oxygen at present
But continue IV Lasix and consider change to oral Lasix in the next 24 to 48 hours
Echocardiogram with new cardiomyopathy, EF 30 to 35% as well as moderate to severe AR and severe TR. Last echo from 09/2023 at [facility] as above. Continue low-dose Toprol. Will add low-dose MIGUELANGEL inhibitor uptitration of cardiomyopathy regimen.
Will have case management assess cost of SGLT2 inhibitor
CHF education
will need repeat echo post diuresis as outpatient reassess AR/TR
Eliquis resumed post cath. She had been on 5 mg twice daily prior to admission, however with age and weight dose was decreased to 2.5 mg twice daily
Anemia noted with hemoglobin 9.6 on admission which is decreased to 8.5
Discussed with primary service and psychiatry evaluation is planned
HPI: Patient presented from [facility] for evaluation of shortness of breath, tachycardia, and hypotension. She had increasing shortness of breath throughout the night and called the nurse this morning. When she was evaluated, they
noted that her breathing was heavy and she was hypotensive and EMS was called. She denies any chest pain, however admits that she does have occasional episodes of what she feels is acid reflux, with a sensation of needing to belch and discomfort in
her epigastric region. She denies any dizziness or lightheadedness. On arrival to the emergency room, she was noted to have EKG changes with fairly diffuse ST elevations noted in leads I, II, and V3 through V6. Initial troponin returned elevated
at 5.45. Cardiology consulted. She was started on heparin drip and given 324 mg of aspirin in the emergency room. Urgent echocardiogram ordered and being completed during examination and history. Preliminarily, appears to show new wall motion
abnormalities which were not previously noted from echo at [facility] during fall 2022 admission. Patient continues to deny any active chest pain and reports her breathing feels stable.
Progress Note - Brim Raiser
Subjective
Date of Service: January 25, 2024
She seems much more comfortable. No complaints
Objective
Labs:
01/25/24 06:00
01/25/24 06:00
Labs
Hgb 8.5 g/dL (12.0-16.0) L 01/25/24 06:00
Hct 25.5 % (37.0-47.0) L 01/25/24 06:00
Plt Count 474 10^3/uL (130-400) H 01/25/24 06:00
APTT Cancelled 01/23/24 14:45
Sodium 132 mmol/L (135-145) L 01/25/24 06:00
Potassium 3.9 mmol/L (3.5-5.1) 01/25/24 06:00
BUN 16 mg/dl (7-17) 01/25/24 06:00
Creatinine 0.5 mg/dL (0.6-1.0) L 01/25/24 06:00
Glucose 95 mg/dl (70-99) 01/25/24 06:00
Troponins
01/23/24 01/23/24 01/23/24
07:29 12:45 21:13
Troponin I 5.450 H* 4.120 H* 4.030 H*
01/24/24
04:03
Troponin I 3.510 H*
Vital Signs and I&O:
Vital Signs
Temp Pulse Resp BP Pulse Ox
98.6 F 104 18 108/55 98
01/25/24 11:17 01/25/24 12:00 01/25/24 11:31 01/25/24 11:16 01/25/24 11:17
Vital Signs
Temp Pulse Resp BP Pulse Ox
98.6 F 104 18 108/55 98
01/25/24 11:17 01/25/24 12:00 01/25/24 11:31 01/25/24 11:16 01/25/24 11:17
Intake & Output
01/23/24 01/24/24 01/25/24 01/26/24
05:59 05:59 06:59 06:59
Intake Total
Output Total
Balance
Physical Exam
Physical Exam
General: Well developed, well nourished in NAD.
Neck: Supple, no JVD, HJR, carotids +2 B/L, no bruits bilaterally.
Heart: Non displaced PMI, RRR, no murmurs, No S3, S4, no rubs.
Lungs: Scattered rhonchi
Abdomen: Normal bowel sounds, soft, non-tender, non-distended.
Extremities: No clubbing, cyanosis or edema bilaterally.
Neuro: Grossly nonfocal, awake, alert and oriented x3.
[2024-01-25] MEDS: ZESTRIL 2.5 MG PO (14:40)
--- NOTE | 2024-01-25 16:02 | PTCARENOTE ---
The patient's urine has a pungent odor today. She has been incontinent all shift. She states 'I can't control it, it just pours out.' The [place] has been ineffective and was removed this am.
[2024-01-25] MEDS: MIRAPEX, GENERIC 1 MG PO (22:43)
[2024-01-25] MEDS: MELATONIN 3 MG PO (22:43)
[2024-01-25] MEDS: REMERON 7.5 MG PO (22:44)
[2024-01-26] VITALS (10 sets, daily range): BP systolic 91–109; BP diastolic 50–76; PULSE 108; O2SAT 97; BMI 21.6
[2024-01-26] MEDS: LIDOCAINE 4% PATCH 1 PATCH TOPICAL (04:09)
[2024-01-26] MEDS: TYLENOL 650 MG PO ×2 (04:10→12:58)
[2024-01-26 06:22] LABS: Hematocrit 27.4 % (37.0-47.0); Hemoglobin 8.9 g/dL (12.0-16.0); Mean Corp Hgb Conc. 32.5 g/dL (33.0-37.0); Mean Corpuscular Hgb 26.9 pg (27.0-31.0); Mean Corpuscular Volume 82.8 fL (81.0-99.0); Mean Platelet Volume 8.9 fL (7.4-10.4); Platelet Count 463 10^3/uL (130-400); Red Blood Cell Count 3.31 10^6/uL (4.20-5.40); Red Cell Dist. Width 15.6 % (11.5-14.5); White Blood Cell Count 9.6 10^3/uL (4.8-10.8)
[2024-01-26 06:41] LABS: Blood Urea Nitrogen 12 mg/dl (7-17); Calcium 8.4 mg/dl (8.4-10.2); Carbon Dioxide 31 mmol/L (22-30); Chloride 95 mmol/L (98-107); Estimated Creatinine Clearance 51 ml/min; Glucose 80 mg/dl (70-99); Potassium 3.5 mmol/L (3.5-5.1); Sodium 130 mmol/L (135-145); eGFR > 60.00
[2024-01-26] MEDS: VENTOLIN NEBULES 2.5 MG INH ×4 (07:35→19:21)
[2024-01-26] MEDS: ADVAIR HFA 115/21 MCG INHALER 2 PUFF INH ×2 (07:36→19:21)
[2024-01-26] MEDS: LASIX IV (08:18)
[2024-01-26] MEDS: TOPROL XL PO (08:18)
[2024-01-26] MEDS: FEOSOL 325 MG PO (08:28)
[2024-01-26] MEDS: ELIQUIS 2.5 MG PO (08:28)
[2024-01-26] MEDS: ZYRTEC 5 MG PO (08:29)
[2024-01-26] MEDS: LEXAPRO 10 MG PO (08:30)
[2024-01-26] MEDS: NICODERM TRANSDERMAL 14 MG TRANSDERM (08:30)
[2024-01-26] MEDS: PROTONIX 40 MG PO (08:30)
[2024-01-26] MEDS: REFRESH EYE DROPS (PF) 1 DROPS BOTH EYES ×2 (08:31→19:46)
[2024-01-26] MEDS: ZESTRIL PO (08:40)
--- NOTE | 2024-01-26 10:20 | W.PN.CARDCBS ---
Addendum entered and electronically signed by Krish Parker MD 01/26/24 13:42:
I saw and examined the patient.
The BINDER LOCKSTITCH or PA's note was reviewed and I agree with the note.
Comment: General: Well developed, well nourished in NAD.
Neck: Supple, no JVD, HJR, carotids +2 B/L, no bruits bilaterally.
Heart: Non displaced PMI, RRR, no murmurs, No S3, S4, no rubs.
Lungs: Scattered rhonchi
Extremities: No clubbing, cyanosis or edema bilaterally.
Neuro: Grossly nonfocal, awake, alert and oriented x3.
She appears comfortable on room air. Is here changed to oral Lasix on 01/26. Placement in progress. Reviewed with family member at bedside.
Original Note:
Today's Communication / Plan
-
Check CXR and pro-BNP
Cont Lasix 20 mg IV daily for now
Increase Eliquis to 5 mg BID for h/o PE which does not require dose adjustment based on age/wt/Cre
Patient recommended cardiology f/u and wishes to see someone closer to her home
Impression / Plan
-
PCP: Dr. Tacho Alvarado at [facility] [place], operated by [facility] [phone]
Machine Load Clerk: None prior to admission, initially seen by Dr. Valenzuela
Impression:
Presented with SOB
Elevated troponin with peak troponin of 5.5 on admission and trending down thereafter
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
Likely Takotsubo CM by cath
Acute systolic CHF
NICM, EF 30-35%
Anemia
Hyponatremia
Tachycardia
Chronic respiratory failure on 4 L of oxygen nocturnally prior to admission
COPD
Hypertension
h/o PE on chronic Eliquis
GERD
OA
Echo 10/13/2023 @ [facility]: EF 75%, no RWMA, mild AR, aortic sclerosis without stenosis, mild mitral stenosis, moderate TR, estimated PAP 58 mmHg
Echo 01/23/2024: EF 30 to 35%, stage II diastolic dysfunction, mild MR, moderate to severe AR, severe TR, PAP 40 to 45 mmHg
Plan:
-Patient with nephew at bedside and they say that patient had knee surgery at [facility] and then went to Rehab then went to [facility] and then to another rehab. Apparently patient normally lives in her own home in
[place] and her daughter lives with her, but patient has not been home in a while because of hospitalizations and rehab stays. Patient had never seen a inside sales administrator prior to this admission for SOB. ECG concerning for ST elevation on admission and
patient was taken to [facility] lab technician where she was found to have nonobstructive CAD. Patient is now being managed for Takotsubo CM.
-Talked with patient and nephew at bedside about hospitalization thus far, talked at a higher volume so that patient could hear me. Reviewed cardiac cath results and Takotsubo CM treatment and meds. Reviewed that patient is tolerating Toprol XL 12.5
mg BID, but that BP is not tolerating addition of lisinopril.
-Cont Toprol XL 12.5 mg BID and hold for SBP less than 100
-Cont lisinopril 2.5 mg daily and hold for SBP less than 110
-Recheck echo as an outpatient in 3 months
-Weight is down at least 1 lb with Lasix 20 mg IV daily. Patient was taking torsemide 10 mg PO daily prior to admission, but she is not sure when that might have been added to her regimen. EF previously normal on echo at [facility] in 09/2023. Cre
stable and pulse ox normal on 2 L NC
-Dry weight not clear. pro-BNP 3900 on admission. CXR on 01/23/24 showed no acute disease. Repeat CXR and pro-BNP 01/26/24.
-Patient was taking Eliquis 5 mg BID (age 83, Cre 0.5 and wt 50.1 kg) prior to admission for h/o PE so no dose adjustment required, will resume at 5 mg BID.
-Hgb 9.6 on admission and then 8.9 on 01/26/24.
-Name and phone number for PCP added 01/26/24. Patient was told that she is being recommended cardiology f/u and offered to make an appt at [facility], but patient declines and says it is too far from home. Patient to ask her PCP and friends/family who they
recommend for cardiology care as an outpatient.
HPI: Patient presented from [facility] for evaluation of shortness of breath, tachycardia, and hypotension. She had increasing shortness of breath throughout the night and called the nurse this morning. When she was evaluated, they
noted that her breathing was heavy and she was hypotensive and EMS was called. She denies any chest pain, however admits that she does have occasional episodes of what she feels is acid reflux, with a sensation of needing to belch and discomfort in
her epigastric region. She denies any dizziness or lightheadedness. On arrival to the emergency room, she was noted to have EKG changes with fairly diffuse ST elevations noted in leads I, II, and V3 through V6. Initial troponin returned elevated
at 5.45. Cardiology consulted. She was started on heparin drip and given 324 mg of aspirin in the emergency room. Urgent echocardiogram ordered and being completed during examination and history. Preliminarily, appears to show new wall motion
abnormalities which were not previously noted from echo at [facility] during fall 2022 admission. Patient continues to deny any active chest pain and reports her breathing feels stable.
Progress Note - Machine Load Clerk
Subjective
Date of Service: January 26, 2024
No chest pain
Objective
Labs:
01/26/24 06:10
01/26/24 06:10
Labs
Hgb 8.9 g/dL (12.0-16.0) L 01/26/24 06:10
Hct 27.4 % (37.0-47.0) L 01/26/24 06:10
Plt Count 463 10^3/uL (130-400) H 01/26/24 06:10
APTT Cancelled 01/23/24 14:45
Sodium 130 mmol/L (135-145) L 01/26/24 06:10
Potassium 3.5 mmol/L (3.5-5.1) 01/26/24 06:10
BUN 12 mg/dl (7-17) 01/26/24 06:10
Creatinine 0.5 mg/dL (0.6-1.0) L 01/26/24 06:10
Glucose 80 mg/dl (70-99) 01/26/24 06:10
Troponins
01/23/24 01/23/24 01/24/24
12:45 21:13 04:03
Troponin I 4.120 H* 4.030 H* 3.510 H*
Vital Signs and I&O:
Vital Signs
Temp Pulse Resp BP Pulse Ox
97.8 F 88 16 92/50 98
01/26/24 07:05 01/26/24 08:39 01/26/24 07:38 01/26/24 08:40 01/26/24 07:05
Vital Signs
Temp Pulse Resp BP Pulse Ox
97.8 F 88 16 92/50 98
01/26/24 07:05 01/26/24 08:39 01/26/24 07:38 01/26/24 08:40 01/26/24 07:05
Intake & Output
01/24/24 01/25/24 01/26/24 01/27/24
05:59 06:59 06:59 06:59
Intake Total
Output Total 1100 / 1100
Balance -1100 / -1100
Physical Exam
Physical Exam
GEN: NAD. AAOx3. Chewing gum
HEENT: EOMI
LUNGS: CTA with slight expiratory wheeze. No rales
CV: Reg, S1/S2, no murmur
ABD: soft, BS+, NT, ND
EXT: No clubbing, cyanosis, lesions or edema B/L
NEURO: Gross non-focal
SKIN: No rash
--- NOTE | 2024-01-26 11:49 | W.PN.HOSP.TC ---
Today's Communication/Plan
-
CM for d/c planning
Assessment / Plan
Assessment / Plan
83-year-old female with past medical history of hypertension, COPD, chronic respiratory failure on 4L of oxygen, PE on Eliquis, GERD; who presented from [facility] where she has been staying after recent hospitalization at [facility].�
Patient states that she was at [facility] for shortness of breath, however according to ER note, she was there for fall with right knee injury.
She was sent to ER for shortness of breath, which started the night prior.
She admits to chronic dyspepsia which she attributes to GERD, and she denies to any acute new chest pain.
She is a poor historian.
She denies to fevers/chills, cough, abdominal pain etc.�
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 Significant elevated LVEDP--Echo noted: EF 30-35 %--Stage II diastolic
dysfunction--Moderate to severe aortic regurgitation--cont lasix, toprol--CM to assess cost of SGLT2 inhibitor--PT/OT eval rec SNF--Eventual referral for outpatient cardiology follow up (3 mos follow up echo) and cardiac rehab--Cont CUTTING ROOM SUPERVISOR Lexapro,
mirtazapine for anxiety--Psych eval given this is severe anxiety causing Takotsubo --psych rec outpt geripsych
Pt c/o acute onset of R foot drop (difficulty with dorsiflexion of R foot), ?peripheral neuropathy involving the peroneal nerve, vs L4-L5 radiculopathy--MRI lumbar/sacral spine noted Moderate compression of the exiting right L4 nerve root--PT OT
eval rec SNF
hyponatremia --possibly due to lexapro
mild hyperkalemia, resolved
Essential hypertension-- cont meds as able
chronic hypoxic respiratory failure on 4L of oxygen recently per intermediate report with COPD--s/p methylprednisone x1 in ED, observe off further steroid
PE on Eliquis--Cont CUTTING ROOM SUPERVISOR Eliquis 2.5 mg twice daily based on her age and weight.
Severe protein calorie malnutrition, suspect pulmonary cachexia
DVT ppx: resumed CUTTING ROOM SUPERVISOR Eliquis.
code status -- full code
d/c planning
Anticipated Discharge: 24 - 48 hours
Subjective/Interval History
-
Date of Service: January 26, 2024
pt without c/o
Objective Data
-
Labs:
Laboratory Results
01/26/24
06:10
WBC 9.6
Hgb 8.9 L
Hct 27.4 L
Plt Count 463 H
Sodium 130 L
Potassium 3.5
Chloride 95 L
Carbon Dioxide 31 H
BUN 12
Creatinine 0.5 L
Glucose 80
Calcium 8.4
Vital Signs:
max temp for 24 hours
01/25/24
18:25
Temp 98.6 F
Vital Signs
Temp Pulse Resp BP Pulse Ox
97.8 F 97 16 92/50 98
01/26/24 07:05 01/26/24 11:24 01/26/24 11:24 01/26/24 08:40 01/26/24 07:05
I&O
01/25/24 01/26/24 01/27/24
06:59 06:59 06:59
Intake Total
Output Total 1100 / 1100
Balance -1100 / -1100
Review of Systems
-
All other systems: Reviewed and negative
Physical Exam
-
General: Well Developed, Well Nourished and No Apparent Distress
HEENT: Normocephalic, Atraumatic and Oxygen
Respiratory: Wheezes
Cardiac: Regular Rhythm and S1/S2; Negative Murmur
GI: Soft, Nontender, Nondistended and Normal Bowel Sounds
Musculoskeletal: No Clubbing, No Cyanosis and No Edema
Neuro: Awake and Alert
--- NOTE | 2024-01-26 12:56 | CM ---
Chart reviewed. Patient was living with her daughter in a 1 STH, 0 DME, using O2 4L at night and then was transferred to [place] after her last inpatient hospitalization. PT/OT recommending SNF. Patient and her daughter would like to be closer
to home. Referrals sent to [facility]. PT/OT to see patient and then patient will need insurance authorization. Plan is for the patient to go to SNF. CM to follow
--- NOTE | 2024-01-26 13:08 | CM ---
Pricing on Farxiga through the patient's [employer]cription plan is $15 a month and does not need a PA.
Jardiance is $15 a month and does not need a PA.
[2024-01-26 13:55] LABS: NT-proBNP 9330 pg/ml
--- NOTE | 2024-01-26 13:55 | PN.CDI ---
CDI
- -
CDI:
Physician Documentation Request
Admit Date: 01/23/24 09:57
Dear Doctor Rocael,
H&P and hospitalist progress notes states 'Severe protein calorie malnutrition, suspect pulmonary cachexia'
01/22 note states ' Pt was observed with temporal depression, hallow orbits, acromion protrusion at oss over ribs. Pt meets ASPEN and AND criteria for moderate protein calorie malnutrition of chronic illness'
Based on the information, could you please clarify which accurately represents the patient's nutritional status?
Severe Malnutrition is/was present and is a clinical diagnosis (please provide additional support in the medical record)
Moderate malnutrition
Other (please specify)
Austell Criteria ([facility] Hospitalist 2017)
2 or more criteria must be present for either
non severe or severe malnutrition
Note that the criteria differs related to the
presence of an acute or chronic illness
Acute Illness Chronic Illness
Energy Intake Non Severe: <75% for >7 days Non Severe: <75% for >1 month
Severe: <50% for >5 days Severe: <75% for >1 month
Weight Loss Non Severe: 1-2% over 1 week Non Severe: 5% over 1 month
5% over 1 month 7.5% over 3 months
7.5% over 3 months 10% over 6 months
1 year N/A 20% over 1 year
Severe: >2% over 1 week Severe: >5% over 1 month
>5% over 1 month >7.5% over 3 months
>7.5% over 3 months >10% over 6 months
1 year N/A >20% over 1 year
Body Fat Non Severe: Mild Decrease Non Severe: Mild Loss
Severe: Moderate Decrease Severe: Severe Loss
Muscle Mass Non Severe: Mild Decrease Non Severe: Mild Loss
Severe: Moderate Decrease Severe: Severe Loss
Fluid Accumulation Non Severe: Mild Accumulation Non Severe: Mild Accumulation
Severe: Moderate to severe Severe: Moderate to severe
accumulation accumulation
Reduced Surgical Forceps Fabricator Strength Non Severe: N/A Non Severe: N/A
Severe: Measurably reduced Severe: Measurably reduced
Additional criteria that can be used to Determine if Mild or Moderate Malnutrition (Merck Manual 2018)
Mild Moderate Severe
Albumin gm/dl <3.0 gm/dl <2.5 gm/dl <2.0 gm/dl
Pre Albumin mg/dl <15 gm/dl <10 mg/dl <5.0 mg/dl
BMI <18.5 <17 <16
Use of terms such as suspected, likely, concern for, or probable (associated with a specific diagnosis that is being evaluated, monitored, or treated as if it exists) are acceptable and can be coded in the inpatient setting, when documented at the
time of discharge.
Thank you,
Tori Chang RN, BSN
CDI Specialist
tiger text
Please use your independent medical judgment in providing your response.
--- NOTE | 2024-01-26 13:59 | PN.CDI ---
CDI
- -
CDI:
Physician Documentation Request
Admit Date: 01/23/24 09:57
Dear Doctor Rocael,
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
Cardiac cath conclusion states 'Non obstructive coronary artery disease' - no intervention during cath. Recommendations 'Goal-directed medical therapy for Takotsubo cardiomyopathy'
Based on the above, could you please clarify the diagnosis that supports the troponin elevation:
MS with nonobstructive coronary arteries with Takotsubo
NSTEMI due to Takotsubo
Takotsubo without MS
Other
Use of terms such as suspected, likely, concern for, or probable (associated with a specific diagnosis that is being evaluated, monitored, or treated as if it exists) are acceptable and can be coded in the inpatient setting, when documented at the
time of discharge.
Thank you,
Tori Chang RN, BSN
CDI Specialist
tiger text
Please use your independent medical judgment in providing your response.
--- NOTE | 2024-01-26 15:44 | PTCARENOTE ---
Pt assisted OOB to chair for lunch, tolerated sitting in chair all afternoon. O2 on at 2L/min. She c/o headache earlier today, med with Tylenol 650 mg po as ordered with relief.
[2024-01-26] MEDS: ELIQUIS 5 MG PO (19:46)
[2024-01-26] MEDS: ULTRAM 50 MG PO (22:03)
[2024-01-26] MEDS: REMERON 7.5 MG PO (22:03)
[2024-01-26] MEDS: MIRAPEX, GENERIC 1 MG PO (22:04)
[2024-01-26] MEDS: MELATONIN 3 MG PO (22:04)
--- NOTE | 2024-01-26 23:44 | PTCARENOTE ---
Assessment noted as documented. Tele- SR/ST. HR 90-100s. Pt c/o L knee pain 06/26. Ultram administered. Pulse ox 97% on 2L O2. No c/o SOB/discomfort. Resting in bed; call chowdhury w/in reach.
[2024-01-27 03:17] VITALS: BP 104/60
[2024-01-27 04:49] LABS: Hematocrit 29.1 % (37.0-47.0); Hemoglobin 9.3 g/dL (12.0-16.0); Mean Corpuscular Hgb 26.6 pg (27.0-31.0); Mean Corpuscular Volume 83.1 fL (81.0-99.0); Mean Platelet Volume 8.8 fL (7.4-10.4); Platelet Count 503 10^3/uL (130-400); Red Cell Dist. Width 15.5 % (11.5-14.5)
[2024-01-27 05:11] LABS: ALT (SGPT) < 10 U/L (0-35); AST (SGOT) 23 U/L (14-36); Albumin 3.1 g/dl (3.5-5.0); Alkaline Phosphatase 90 U/L (38-126); Blood Urea Nitrogen 14 mg/dl (7-17); Calcium 8.6 mg/dl (8.4-10.2); Carbon Dioxide 30 mmol/L (22-30); Chloride 95 mmol/L (98-107); Estimated Creatinine Clearance 51 ml/min; Glucose 99 mg/dl (70-99); Magnesium 1.8 mg/dl (1.6-2.3); Potassium 3.7 mmol/L (3.5-5.1); Sodium 130 mmol/L (135-145); Total Bilirubin 0.2 mg/dl (0.2-1.3); Total Protein 6.1 g/dl (6.3-8.2); eGFR > 60.00
[2024-01-27 06:51] VITALS: BP 127/74
[2024-01-27] MEDS: ADVAIR HFA 115/21 MCG INHALER 2 PUFF INH (07:07)
[2024-01-27] MEDS: VENTOLIN NEBULES 2.5 MG INH (07:07)
[2024-01-27] MEDS: REFRESH EYE DROPS (PF) 1 DROPS BOTH EYES (07:42)
[2024-01-27] MEDS: PROTONIX 40 MG PO (07:42)
[2024-01-27] MEDS: TOPROL XL 12.5 MG PO (07:43)
[2024-01-27] MEDS: ELIQUIS 5 MG PO (07:43)
[2024-01-27] MEDS: ZESTRIL 2.5 MG PO (07:44)
[2024-01-27] MEDS: LASIX 20 MG IV (07:44)
[2024-01-27] MEDS: FEOSOL 325 MG PO (07:44)
[2024-01-27] MEDS: ZYRTEC 5 MG PO (07:45)
[2024-01-27] MEDS: NICODERM TRANSDERMAL 14 MG TRANSDERM (07:45)
[2024-01-27] MEDS: LIDOCAINE 4% PATCH 1 PATCH TOPICAL (07:46)
[2024-01-27] MEDS: FLUSH (NSS) 1 FLUSH IV (07:51)
[2024-01-27] MEDS: LEXAPRO 10 MG PO (07:53)
[2024-01-27] MEDS: ULTRAM 50 MG PO (07:54)
--- NOTE | 2024-01-27 09:33 | W.PN.HOSP.TC ---
Today's Communication/Plan
-
d/c to SNF when insurance auth obtained
Assessment / Plan
Assessment / Plan
83-year-old female with past medical history of hypertension, COPD, chronic respiratory failure on 4L of oxygen, PE on Eliquis, GERD; who presented from [facility] where she has been staying after recent hospitalization at [facility].�
Patient states that she was at [facility] for shortness of breath, however according to ER note, she was there for fall with right knee injury.
She was sent to ER for shortness of breath, which started the night prior.
She admits to chronic dyspepsia which she attributes to GERD, and she denies to any acute new chest pain.
She is a poor historian.
She denies to fevers/chills, cough, abdominal pain etc.�
Dyspnea due to anxiety attack/acute nonischemic myocardial injury due to takotsubo cardiomyopathy by cath/Trop peaked at 5.45--s/p cath from admission 01/22: No obstructive coronary artery disease. Significant elevated LVEDP--Echo noted: EF 30-35
%--Stage II diastolic dysfunction--Moderate to severe aortic regurgitation--cont lasix, toprol--CM to assess cost of SGLT2 inhibitor--PT/OT eval rec SNF--Eventual referral for outpatient cardiology follow up (3 mos follow up echo) and cardiac
rehab--Cont PHOTOGRAMMETRIC TECH Lexapro, mirtazapine for anxiety--Psych eval given this is severe anxiety causing Takotsubo --psych rec outpt geripsych--lasix to oral per cards
Pt c/o acute onset of R foot drop (difficulty with dorsiflexion of R foot), ?peripheral neuropathy involving the peroneal nerve, vs L4-L5 radiculopathy--MRI lumbar/sacral spine noted Moderate compression of the exiting right L4 nerve root--PT OT
eval rec SNF
hyponatremia --possibly due to lexapro
mild hyperkalemia, resolved
Essential hypertension-- cont meds as able
chronic hypoxic respiratory failure on 4L of oxygen recently per assisted report with COPD--s/p methylprednisone x1 in ED, observe off further steroid--now on room air
PE on Eliquis--Cont PHOTOGRAMMETRIC TECH Eliquis 2.5 mg twice daily based on her age and weight.
Moderate protein calorie malnutrition, suspect pulmonary cachexia
DVT ppx: resumed PHOTOGRAMMETRIC TECH Eliquis.
code status -- full code
d/c planning
Anticipated Discharge: Today
Subjective/Interval History
-
Date of Service: January 27, 2024
pt without c/o
Objective Data
-
Labs:
Laboratory Results
01/27/24
04:30
WBC 10.0
Hgb 9.3 L
Hct 29.1 L
Plt Count 503 H
Sodium 130 L
Potassium 3.7
Chloride 95 L
Carbon Dioxide 30
BUN 14
Creatinine 0.5 L
Glucose 99
Calcium 8.6
Total Bilirubin 0.2
AST 23
ALT < 10
Alkaline Phosphatase 90
Vital Signs:
max temp for 24 hours
01/27/24
06:49
Temp 98.7 F
Vital Signs
Temp Pulse Resp BP Pulse Ox
98.7 F 94 18 127/74 93
01/27/24 06:49 01/27/24 07:11 01/27/24 07:11 01/27/24 06:51 01/27/24 07:11
I&O
01/26/24 01/27/24 01/28/24
06:59 06:59 06:59
Intake Total 100 / 100
Output Total 1100 / 1100
Balance -1100 / -1100 100 / 100
Review of Systems
-
All other systems: Reviewed and negative
Physical Exam
-
General: Appears Chronically Ill
HEENT: Normocephalic and Atraumatic; Negative Oxygen
Respiratory: Clear to Auscultation; Negative Wheezes, Rales, Rhonchi or Crackles
Cardiac: Regular Rhythm and S1/S2; Negative Murmur
GI: Soft, Nontender, Nondistended and Normal Bowel Sounds
Musculoskeletal: No Clubbing, No Cyanosis and No Edema
Skin: Warm
Neuro: Awake
--- NOTE | 2024-01-27 10:21 | W.PN.CARDCBS ---
Addendum entered and electronically signed by Krish Parker MD 01/27/24 14:51:
I saw and examined the patient.
The DIRECTOR LONG TERM CARE or PA's note was reviewed and I agree with the note.
Comment: General: Well developed, well nourished in NAD.
Neck: Supple, no JVD, HJR, carotids +2 B/L, no bruits bilaterally.
Heart: Non displaced PMI, RRR, no murmurs, No S3, S4, no rubs.
Lungs: Scattered rhonchi
Extremities: No clubbing, cyanosis or edema bilaterally.
Neuro: Grossly nonfocal, awake, alert and oriented x3.
Stable cardiology status for discharge to nursing home facility
Change IV Lasix back to patient's prior torsemide 10 mg p.o. daily outpatient
Arrange follow-up in our office but might follow-up closer to rehab facility near her house
Discussed with primary service
Original Note:
Today's Communication / Plan
-
She is going to a different rehab pending insurance auth
Cont Toprol XL and lisinopril
Cont Eliquis 5 mg BID for h/o PE
Will schedule cardiology f/u locally and if patient decides to follow up closer to home then she can cancel the appt
Impression / Plan
-
PCP: Dr. Tacho Alvarado at [facility] [phone]
Supervisor Post Wave: None prior to admission, initially seen by Dr. Valenzuela
Impression:
Presented with SOB
Elevated troponin with peak troponin of 5.5 on admission and trending down thereafter
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
Likely Takotsubo CM by cath
Acute systolic CHF
NICM, EF 30-35%
Anemia
Hyponatremia
Tachycardia
Chronic respiratory failure on 4 L of oxygen nocturnally prior to admission
COPD
Hypertension
h/o PE on chronic Eliquis
GERD
OA
Echo 10/13/2023 @ [facility]: EF 75%, no RWMA, mild AR, aortic sclerosis without stenosis, mild mitral stenosis, moderate TR, estimated PAP 58 mmHg
Echo 01/23/2024: EF 30 to 35%, stage II diastolic dysfunction, mild MR, moderate to severe AR, severe TR, PAP 40 to 45 mmHg
Plan:
-Patient is largely tolerating Toprol XL 12.5 mg BID which is new this admission.
-Patient also ordered lisinopril 2.5 mg daily and most doses held, but BP up to 127/74 on 01/27/24 AM so a dose was given.
-Talked with patient and nephew in room on 01/26/24 and reviewed likely Takotsubo CM diagnosis and management plan including meds and repeat echo in 3 months.
-Name and phone number for PCP added 01/26/24. Patient was told that she is being recommended cardiology f/u and offered to make an appt at [facility], but patient declines and says it is too far from home. Patient to ask her PCP and friends/family who they
recommend for cardiology care as an outpatient.
-Patient had knee surgery at [facility] and then went to Rehab then went to [facility] and then to another rehab. Apparently patient normally lives in her own home in [place] and her daughter lives with her, but patient
has not been home in a while because of hospitalizations and rehab stays. Patient had never seen a refinery operator assistant prior to this admission for SOB. ECG concerning for ST elevation on admission and patient was taken to laboratory sampler where she was found to
have nonobstructive CAD. Patient is now being managed for Takotsubo CM.
-EF 30-35% by echo 01/23/24. EF previously normal on echo at [facility] in 09/2023.
-LVEDP was 34 on 01/23/24 and weight was recorded at 123 lbs that day. Patient has been diuresed with Lasix 20 mg IV daily and weight is down to 110 lbs, but strongly suspect that the initial weight of 123 lbs was not correct. Regardless, patient was
taking torsemide 10 mg daily prior to admission and will resume now.
-Cre stable and pulse ox normal on 2 L NC
-Patient was taking Eliquis 5 mg BID (age 83, Cre 0.5 and wt 50.1 kg) prior to admission for h/o PE so no dose adjustment required, resumed at 5 mg BID.
-Hgb 9.6 on admission and then 8.9 on 01/26/24 and then 9.3 on 01/27/24.
-Patient is going to be discharged to a different SNF, [facility], once insurance auths.
HPI: Patient presented from [facility] for evaluation of shortness of breath, tachycardia, and hypotension. She had increasing shortness of breath throughout the night and called the nurse this morning. When she was evaluated, they
noted that her breathing was heavy and she was hypotensive and EMS was called. She denies any chest pain, however admits that she does have occasional episodes of what she feels is acid reflux, with a sensation of needing to belch and discomfort in
her epigastric region. She denies any dizziness or lightheadedness. On arrival to the emergency room, she was noted to have EKG changes with fairly diffuse ST elevations noted in leads I, II, and V3 through V6. Initial troponin returned elevated
at 5.45. Cardiology consulted. She was started on heparin drip and given 324 mg of aspirin in the emergency room. Urgent echocardiogram ordered and being completed during examination and history. Preliminarily, appears to show new wall motion
abnormalities which were not previously noted from echo at [facility] during fall 2022 admission. Patient continues to deny any active chest pain and reports her breathing feels stable.
Progress Note - Supervisor Post Wave
Subjective
Date of Service: January 27, 2024
She thinks she is doing better compared to admission
Objective
Labs:
01/27/24 04:30
01/27/24 04:30
Labs
Hgb 9.3 g/dL (12.0-16.0) L 01/27/24 04:30
Hct 29.1 % (37.0-47.0) L 01/27/24 04:30
Plt Count 503 10^3/uL (130-400) H 01/27/24 04:30
APTT Cancelled 01/23/24 14:45
Sodium 130 mmol/L (135-145) L 01/27/24 04:30
Potassium 3.7 mmol/L (3.5-5.1) 01/27/24 04:30
BUN 14 mg/dl (7-17) 01/27/24 04:30
Creatinine 0.5 mg/dL (0.6-1.0) L 01/27/24 04:30
Glucose 99 mg/dl (70-99) 01/27/24 04:30
Vital Signs and I&O:
Vital Signs
Temp Pulse Resp BP Pulse Ox
98.7 F 94 18 127/74 93
01/27/24 06:49 01/27/24 07:11 01/27/24 07:11 01/27/24 06:51 01/27/24 07:11
Vital Signs
Temp Pulse Resp BP Pulse Ox
98.7 F 94 18 127/74 93
01/27/24 06:49 01/27/24 07:11 01/27/24 07:11 01/27/24 06:51 01/27/24 07:11
Intake & Output
01/25/24 01/26/24 01/27/24 01/28/24
06:59 06:59 06:59 06:59
Intake Total 100 / 100
Output Total 1100 / 1100
Balance -1100 / -1100 100 / 100
Physical Exam
Physical Exam
GEN: NAD. AAOx3
HEENT: EOMI
LUNGS: CTA B/L
CV: Reg
ABD: soft, BS+
EXT: No edema B/L
NEURO: Gross non-focal
SKIN: No rash
--- NOTE | 2024-01-27 10:22 | CM ---
Chart reviewed. Patient is independent of ADLS, lives with her daughter in a 1 STH, 0 DME, wears O2 2l at night. Patient was previously receiving Skilled Rehab at [facility]. PT/OT evaluation recommending Skilled. Patient and her daughter
would prefer to be closer to home. [facility] has a bed and accepted the patient. Waiting on insurance authorization. Plan is for the patient to go to [facility].
[2024-01-27 11:25] VITALS: BP 99/55
[2024-01-27] MEDS: VENTOLIN NEBULES INH (11:30)
--- NOTE | 2024-01-27 12:51 | CM ---
[id number]
[2024-01-27] MEDS: TYLENOL 650 MG PO (14:25)
--- NOTE | 2024-01-27 15:00 | PTCARENOTE ---
Pt c/o of left knee pain this am. Medicated with Ultram as ordered with partial relief. Left knee elevated on a pillow. Pt denies any sob. Left radial site clean, dry and WEALTH MANAGEMENT ADVISOR. Incontinent of urine. Refused oob to the chair. Pt discharged to [facility] via ambulance. Report called to nurse receiving pt.
--- NOTE | 2024-01-27 15:25 | PN.CDI ---
Addendum entered and electronically signed by Radha Cote MD 01/27/24 19:32:
Documentation is complete.
Original Note:
CDI
- -
CDI:
Physician Documentation Request
Admit Date: 01/23/24 09:57
Dear Doctor Rocael
Hospitalist progress notes includes a diagnosis of chronic hypoxic respiratory failure on 4 L of oxygen.
Cardiology note states patient uses nocturnally prior to admission .
01/26 hospitalist progress note states 'now on room air'
Please clarify which of the following accurately represents the patient's respiratory status:
Chronic hypoxic respiratory failure requiring continues use of home O2
Hypoxia requiring intermittent home O2 use
Other
Use of terms such as suspected, likely, concern for, or probable (associated with a specific diagnosis that is being evaluated, monitored, or treated as if it exists) are acceptable and can be coded in the inpatient setting, when documented at the
time of discharge.
Thank you,
Tori Chang RN, BSN
CDI Specialist
tiger text
Please use your independent medical judgment in providing your response.
--- NOTE | 2024-01-27 19:16 | W.DCSUMMARY ---
Discharge Summary
Discharge Data
Date of Admission: 01/23/24
Date of Discharge: 01/27/24
-
Pending Results: No
Hospital Course
Primary care physician : Anthony Boss
Principal Discharge diagnosis : Dyspnea due to anxiety and acute nonischemic myocardial injury due to Takotsubo cardiomyopathy by catheterization, acute onset of right foot drop, hyponatremia
Chronic Discharge diagnosis : Essential hypertension, chronic hypoxemic respiratory failure with history of being on 4 L of oxygen at the long term, chronic obstructive pulmonary disease, history of pulmonary embolism on Eliquis, moderate protein
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
Hospital Course : Patient is a 83-year-old female with a history of essential hypertension, chronic obstructive pulmonary disease and chronic respiratory failure on 4 L of oxygen who presented from [facility] where she was staying after recent
hospitalization at [facility]. She was there for shortness of breath however patient also had a fall with right knee injury. She was sent for shortness of breath which started the night prior to admission. She admitted to chronic dyspepsia.
Patient was admitted.
Problem #1: Dyspnea due to anxiety and acute nonischemic myocardial injury due to Takotsubo cardiomyopathy. Patient was seen in consultation by cardiology. Her troponin did peak at 5.5. She had a catheterization on January 22 which showed none
obstructive coronary artery disease but significantly elevated pressures. Ejection fraction was noted at 30 to 35% with stage II diastolic dysfunction. This was all consistent with Takotsubo cardiomyopathy. She was given IV Lasix which has been
transitioned over to her oral torsemide which she came in the hospital with. It is recommended that she follow-up in 3 months with an echocardiogram as well as cardiac rehab. Anxiety was also treated with Lexapro, mirtazapine and psychiatry was
consulted. They recommend outpatient [facility].
Problem #2: Acute onset of right foot drop. Patient had an MRI of the lumbar sacral spine which showed moderate compression of the exiting right L4 nerve root. Physical therapy and Occupational Therapy were consulted and it was recommended that
the patient go to a half-way facility. Family wanted the patient closer to them and she has been accepted to [facility].
Problem #3: Hyponatremia. This was thought possibly due to Lexapro but this was stable.
Problem #4: All other medical issues. These include Essential hypertension, chronic hypoxemic respiratory failure with history of being on 4 L of oxygen at the long term, chronic obstructive pulmonary disease, history of pulmonary embolism on
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 These medical issues were stable during her hospitalization. Medications were continued as able.
Patient is stable for discharge to the half-way facility at this time. If there are any questions regarding this dictation or her hospital stay, please not hesitate to call. Our office number is [phone].
Important imaging findings :
MRI LUMBAR SPINE IMPRESSION:
Degenerative changes at L4-5, as described, with grade 2 spondylolisthesis, contributing to advanced central canal and bilateral lateral recess stenosis as well as moderate to advanced bilateral foraminal stenosis, right greater than left. Moderate
compression of the exiting right L4 nerve root.
Procedure findings :
CARDIAC CATH CONCLUSIONS:
1.� No obstructive coronary artery disease.
2.� Significant elevated LVEDP.
Discharge Plan
-
Patient Disposition: Assisted/SNF
Discharge Diagnosis/Procedures: Shortness of breath with anxiety attack resulting in acute nonischemic myocardial injury due to Takatsubo cardiomyopathy noted on cardiac cath, acute onset of right foot drop, hyponatremia, mild hyperkalemia,
essential hypertension, chronic hypoxemic respiratory failure on 4 L of oxygen, chronic obstructive pulmonary disease, pulmonary embolus, moderate protein calorie malnutrition
Condition: Fair
Diet: As tolerated and 2 Gram Sodium
Activity: As tolerated
Driving Restrictions: Not until seen by your Dr
Bathing Restrictions: None
Specialty Instructions: Weigh Daily- Call MD for wt gain/loss 3 lbs overnight/5 lbs in 1 week
Stand Alone Forms: DC Instructions- Cath/EP Lab
Referrals:
[facility] [Outside]
Anthony Boss I., DO [Family Provider] - in less than 1 week
Tacho Alvarado MD [Non-Admitting Privileges] - in one to two weeks
Alnie Gutiérrez PA-C [Specified Professional Personl] - 02/18/24 3:00 pm (You have an appt to see the physician janitorial assistant at the cardiology office on 02/18/24, but if you would like to follow up with a superintendent pressure closer to home then please call to
cancel your appt at [phone].)
Prescriptions:
New
lisinopril 2.5 mg Tablet
2.5 mg PO DAILY Qty: 20 0RF
metoprolol succinate 25 mg Tablet Extended Release 24 Hr
12.5 mg PO DAILY Qty: 20 0RF
Continued
acetaminophen [Tylenol] 325 mg Tablet
650 mg PO Q6H MDD 3000 mg PRN (Reason: mild pain)
lidocaine 4 % Adhesive Patch,Medicated
1 patch TOPICAL BID
Patient Comments:
01/23/2024, on in the morning and remove at bedtime.
polyethylene glycol 3350 17 gram Powder In Packet
17 g PO DAILY PRN (Reason: constipation)
tramadol 50 mg Tablet
50 mg PO Q8H PRN (Reason: moderate pain)
magnesium hydroxide [Milk of Magnesia] 400 mg/5 mL Suspension
30 ml PO DAILY PRN (Reason: constipation)
bisacodyl 10 mg Suppository
10 mg [place] DAILY PRN (Reason: if no results for MOM)
Fleet Enema 19-7 gram/118 mL Enema
118 ml [place] DAILYPRN PRN (Reason: if no BM in 3 days)
pramipexole 0.25 mg Tablet
0.25 mg PO DAILY PRN (Reason: restless legs)
calcium carbonate 500 mg calcium (1,250 mg) Tablet,Chewable
1,000 mg PO Q8HPRN PRN (Reason: gerd)
albuterol sulfate 90 mcg/actuation Hfa Aerosol Inhaler
2 puff INHALATION R Q6HPRN PRN (Reason: sob/wheezing)
arformoterol 15 mcg/2 mL Solution For Nebulization
2 ml INHALATION R Q12
Patient Comments:
01/23/2024, Q12H.
fluticasone propion-salmeterol 250-50 mcg/dose Blister With Device
1 inh INHALATION R BID Qty: 0 0RF
sennosides [senna] 8.6 mg Tablet
8.6 mg PO HS Qty: 0 0RF
nicotine 14 mg/24 hr Patch 24 Hour
1 patch TRANSDERMAL DAILY Qty: 0 0RF
cyanocobalamin (vitamin B-12) 1,000 mcg Tablet
1,000 mcg PO DAILY Qty: 0 0RF
melatonin 3 mg Tablet
3 mg PO HS Qty: 0 0RF
pramipexole 0.5 mg Tablet
1 mg PO HS Qty: 0 0RF
pantoprazole [Protonix] 40 mg Tablet,Delayed Release (Dr/Ec)
40 mg PO DAILY Qty: 0 0RF
ferrous sulfate 325 mg (65 mg iron) Tablet
325 mg PO DAILY Qty: 0 0RF
docusate sodium [Colace] 100 mg Capsule
200 mg PO HS Qty: 0 0RF
budesonide 0.5 mg/2 mL Suspension For Nebulization
0.5 mg INHALATION R Q12 Qty: 0 0RF
Patient Comments:
01/23/2024, Q12H.
Artificial Tears([id number]) 1-0.2-0.2 % Drops
1 drp BOTH EYES BID Qty: 0 0RF
escitalopram oxalate [Lexapro] 10 mg Tablet
10 mg PO DAILY Qty: 0 0RF
mirtazapine 7.5 mg Tablet
7.5 mg PO HS Qty: 0 0RF
chlorhexidine gluconate [Peridex] 0.12 % Mouthwash
15 ml PO BID Qty: 0 0RF
cholecalciferol (vitamin D3) 25 mcg (1,000 unit) Tablet
25 mcg PO DAILY Qty: 0 0RF
levocetirizine 5 mg Tablet
5 mg PO DAILY Qty: 0 0RF
Eliquis 5 mg Tablet
5 mg PO BID Qty: 0 0RF
potassium chloride 20 mEq Tablet Extended Release
40 meq PO DAILY Qty: 0 0RF
torsemide 10 mg Tablet
10 mg PO DAILY Qty: 0 0RF
Discontinued
magnesium hydroxide [Milk of Magnesia] 400 mg/5 mL Suspension
30 ml PO HSPRN PRN (Reason: if no BM in 3 days)
Discharge Orders:
Discharge Patient (As Directed); Ordered 01/27/24
Ordered By: Radha Cote
Care Plan Goals
Care Plan Goals:
Problem: Readiness for enhanced knowledge related to diagnosis and treatment plan
Goal: Understand your diagnosis and treatment plan needs, including medications if applicable.
Instructions: Know your diagnosis, underlying causes and treatment plan options, including medications if applicable. Consult with your health care team to learn about your diagnosis and treatment plan, including medications if applicable.
Discharge Date and Time
Discharge Date/Time: 01/27/24 15:00
== END 2024-01-27 15:00 | DRG 286 ==
LOC: IVU 09:57
PROVIDERS: Internal Medicine Interventional Cardiology; Nurse Practitioner Adult Health; ADMITTING PHYSICIAN Internal Medicine; ATTENDING PHYSICIAN Internal Medicine; CONSULT PHYSICIAN Internal Medicine Cardiovascular Disease; EMERGENCY PHYSICIAN Emergency Medicine; FAMILY PHYSICIAN Internal Medicine; OTHER PHYSICIAN Psychiatry & Neurology Psychiatry
PROC: B2111ZZ Fluoroscopy of Multiple Coronary Arteries using Low Osmolar Contrast (ICD-10-PCS; 2024-01-23)
PROC: 4A023N7 Measurement of Cardiac Sampling and Pressure, Left Heart, Percutaneous Approach (ICD-10-PCS; 2024-01-23)
DX: I51.81 Takotsubo syndrome (principal); I50.21 Acute systolic (congestive) heart failure; E44.0 Moderate protein-calorie malnutrition; E87.1 Hypo-osmolality and hyponatremia; I5A Non-ischemic myocardial injury (non-traumatic); J96.11 Chronic respiratory failure with hypoxia; J44.9 Chronic obstructive pulmonary disease, unspecified; I11.0 Hypertensive heart disease with heart failure; K21.9 Gastro-esophageal reflux disease without esophagitis; Z68.21 Body mass index [BMI] 21.0-21.9, adult; Z86.711 Personal history of pulmonary embolism; Z79.01 Long term (current) use of anticoagulants
CPT/HCPCS: 71045; 71046; 72148; 76937; 80048; 80053; 80061; 82728; 83540; 83550; 83605; 83735; 83880; 84484; 85025; 85027; 85730; 87070; 87502; 87811; 93005; 93306; 93458; 94640; 96365; 96366; 96375; 97116; 97163; 97167; 97535; 99152; 99153; 99285; C1894; Q9967

== ENCOUNTER → 2024-05-05 11:19 | Outpatient (REF) | payer MEDICARE, SELFPAY | LOC: RCS 11:19 | PROVIDERS: ATTENDING PHYSICIAN Physician Assistant | DX: I51.81 Takotsubo syndrome (principal); I50.20 Unspecified systolic (congestive) heart failure; I42.8 Other cardiomyopathies | CPT/HCPCS: 93306 ==